=== PATIENT | female | born 1935 | race Caucasian/White ===

== ENCOUNTER 2018-05-25 19:12 | Emergency (ER) | payer OTHER ==
[2018-05-25] MEDS ORDERED: ENALAPRILAT 1.25 MG/ML VIAL IV ONE (20:17)
[2018-05-25 20:21] LABS: Absolute Lymphocytes (CBC) 2.2 K/uL (0.7-4.9); Absolute Monocytes 0.6 K/uL (0.1-1.3); Absolute Neutrophil 4.6 K/uL (1.8-8.0); Basophils % 0.9 % (0-1.3); Eosinophils % 2.6 % (0-4.4); Hematocrit 37.1 % (36.0-45.0); Lymphocytes % 28.7 % (15.3-44.8); MCH 28.9 pg (27.0-35.0); MCV 84.9 fL (80-100); MPV 7.7 fL (7.6-11.3); Monocytes % 8.2 % (3.3-12.3); RBC Red Blood Cell Count 4.36 M/uL (3.86-4.86)
[2018-05-25 20:25] LABS: Protime INR 0.93
[2018-05-25 20:40] LABS: ALT/SGPT 24 U/L (12-78); AST/SGOT 24 U/L (15-37); Albumin 3.6 g/dL (3.4-5.0); Alkaline Phosphatase 94 U/L (45-117); BUN Blood Urea Nitrogen 15 mg/dL (7-18); Bicarbonate 27 mmol/L (21-32); Bilirubin Direct < 0.1 mg/dL (0-0.2); Bilirubin Total 0.2 mg/dL (0.2-1.0); Glucose Level 173 mg/dL (74-106); NT PRO-BNP 482 pg/mL (<450); Protein, Total 7.4 g/dL (6.4-8.2); Sodium Level 141 mmol/L (136-145); Troponin (Emerg Dept Use Only) < 0.02 ng/mL (0.0-0.045)
--- NOTE | 2018-05-25 21:00 | ER ---
Nurse's Notes [facility] Name: Suzanna Loving Age: 83 yrs Sex: Female : 1935 Arrival Date: 05/25/2018 Time: 19:15 Bed 20 Private MD: Sasha Savage C Diagnosis: Essential (primary) hypertension Presentation: 05/25 19:18 Presenting complaint: Patient states: My BP has been running really high at home and I la1 feel like me equilibrium is off since I fell one month ago. Transition of care: patient was not received from another setting of care. Onset of symptoms was May 25, 2018. Risk Assessment: Do you want to hurt yourself or someone else? Patient reports no desire to harm self or others. Initial Sepsis Screen: Does the patient meet any 2 criteria? No. Patient's initial sepsis screen is negative. Does the patient have a suspected source of infection? No. Patient's initial sepsis screen is negative. Care prior to arrival: None. 19:18 Method Of Arrival: Ambulatory la1 19:18 Acuity: ARTHUR 3 la1 Historical: - Allergies: 19:19 Pyridium; la1 - PMHx: 19:19 BRADYCARDIA; COPD; Hypertension; la1 - Immunization history:: Adult Immunizations up to date. - Social history:: Smoking status: Patient/guardian denies using tobacco. - Ebola Screening: : No symptoms or risks identified at this time. Screenin:30 Abuse screen: Denies threats or abuse. Nutritional screening: No deficits noted. jb4 Tuberculosis screening: No symptoms or risk factors identified. Fall Risk Fall in past 12 months (25 points). Total Arevalo Fall Scale indicates Low Risk Score (25-44 pts). Fall prevention measures have been instituted. Side Rails Up X 2 Placed close to Nursing Station Frequent Obs/Assesments occuring Family Present and informed to notify staff if they need to leave bedside. Assessment: 19:30 General: Appears in no apparent distress. comfortable, Behavior is calm, cooperative, jb4 appropriate for age. Pain: Complains of pain in left ear, headache. Pain does not radiate. Pain currently is 2 out of 10 on a pain scale. Pain began 1 day ago. Neuro: Level of Consciousness is awake, alert, obeys commands, Oriented to person, place, time, situation. Cardiovascular: Heart tones S1 S2 present Patient's skin is warm and dry. Rhythm is sinus rhythm. Respiratory: Airway is patent Respiratory effort is even, unlabored, Respiratory pattern is regular, symmetrical. GI: No signs and/or symptoms were reported involving the gastrointestinal system. : No signs and/or symptoms were reported regarding the genitourinary system. EENT: No signs and/or symptoms were reported regarding the EENT system. Derm: Skin is intact, Skin is pink, warm \T\ dry. Musculoskeletal: Circulation, motion, and sensation intact. 20:31 Reassessment: Patient appears in no apparent distress at this time. Patient and/or jb4 family updated on plan of care and expected duration. Pain level reassessed. Patient is alert, oriented x 3, equal unlabored respirations, skin warm/dry/pink. Patient states feeling better. Patient states symptoms have improved. 21:13 Reassessment: Patient appears in no apparent distress at this time. Patient and/or jb4 family updated on plan of care and expected duration. Pain level reassessed. Patient is alert, oriented x 3, equal unlabored respirations, skin warm/dry/pink. Discussed D/c, F/u with pt, denies questions or concerns. Patient states feeling better. Vital Signs: 19:19 BP 169 / 107; Pulse 80; Resp 16; Temp 97.6; Pulse Ox 97% on R/A; Weight 90.72 kg; la1 20:30 BP 153 / 85; Pulse 72; Resp 16; Pulse Ox 100% on R/A; jb4 20:45 BP 159 / 82; Pulse 72; Resp 12; Pulse Ox 100% on R/A; jb4 ED Course: 19:15 Patient arrived in ED. es 19:15 Sasha Savage MD is Private Physician. es 19:19 Triage completed. la1 19:19 Arm band placed on left wrist. la1 19:20 Reynold Joshi, HOLLIE is Primary Nurse. jb4 19:30 Patient has correct armband on for positive identification. Bed in low position. Call jb4 light in reach. Side rails up X 1. monitoring analyst on. Pulse ox on. NIBP on. 19:30 Inserted saline lock: 22 gauge in right forearm, using aseptic technique. Blood jb4 collected. 19:38 Jaime Graves PA is PHCP. jr8 19:38 Mohan Young MD is Attending Physician. jr8 19:45 Initial lab(s) drawn, by me, sent to lab. jb4 20:31 XRAY Chest (1 view) In Process Unspecified. EDMS 20:59 Sasha Savage MD is Referral Physician. jr8 21:13 No provider procedures requiring assistance completed. IV discontinued, intact, jb4 bleeding controlled. Administered Medications: 20:20 Drug: Enalaprilat 1.25 mg Route: IV; Rate: calculated rate; Site: right forearm; jb4 20:32 Follow up: Response: No adverse reaction; Blood pressure is lowered; IV Status: jb4 Completed infusion; given IVP per Pharmacy protocol. Intake: Outcome: 20:59 Discharge ordered by . jr8 21:14 Discharged to home ambulatory, with family. jb4 21:14 Condition: stable 21:14 Discharge instructions given to patient, family, Instructed on discharge instructions, follow up and referral plans. medication usage, Demonstrated understanding of instructions, follow-up care, medications, Prescriptions given X 2. 21:14 Patient left the ED. jb4 Signatures: Dispatcher [employer] EDWA Anitha Toledo Josh, PA PA jr8 Joel Menjivar, RN RN la1 Reynold Joshi, RN RN jb4 Corrections: (The following items were deleted from the chart) 21:14 19:30 Inserted saline lock: 22 gauge in right forearm, using aseptic technique. Blood jb4 collected. jb4
--- NOTE | 2018-05-25 21:01 | EDPHYS ---
Physician Documentation [facility] Name: Suzanna Loving Age: 83 yrs Sex: Female : 1935 Arrival Date: 05/25/2018 Time: 19:15 Bed 20 Private MD: Sasha Savage C ED Physician Mohan Young HPI: 05/25 21:43 This 83 yrs old Female presents to ER via Ambulatory with complaints of High jr8 Blood Pressure. 21:43 Onset: The symptoms/episode began/occurred gradually, 3 day(s) ago. Associated signs jr8 and symptoms: The patient has no apparent associated signs or symptoms. It is unknown whether or not the patient has had similar symptoms in the past. The patient has not recently seen a physician. Patient stated that she has been checking her BP for the past few days because it has been elevated. Concerned that it is not going down with her BP medicine . Historical: - Allergies: 19:19 Pyridium; la1 - PMHx: 19:19 BRADYCARDIA; COPD; Hypertension; la1 - Immunization history:: Adult Immunizations up to date. - Social history:: Smoking status: Patient/guardian denies using tobacco. - Ebola Screening: : No symptoms or risks identified at this time. ROS: 21:43 Eyes: Negative for injury, pain, redness, and discharge, ENT: Negative for injury, jr8 pain, and discharge, Neck: Negative for injury, pain, and swelling, Cardiovascular: Negative for chest pain, palpitations, and edema, Respiratory: Negative for shortness of breath, cough, wheezing, and pleuritic chest pain, Abdomen/GI: Negative for abdominal pain, nausea, vomiting, diarrhea, and constipation, Back: Negative for injury and pain, MS/Extremity: Negative for injury and deformity, Skin: Negative for injury, rash, and discoloration, Neuro: Negative for headache, weakness, numbness, tingling, and seizure. Exam: 21:43 Eyes: Pupils equal round and reactive to light, extra-ocular motions intact. Lids and jr8 lashes normal. Conjunctiva and sclera are non-icteric and not injected. Cornea within normal limits. Periorbital areas with no swelling, redness, or edema. ENT: Nares patent. No nasal discharge, no septal abnormalities noted. Tympanic membranes are normal and external auditory canals are clear. Oropharynx with no redness, swelling, or masses, exudates, or evidence of obstruction, uvula midline. Mucous membranes moist. Neck: Trachea midline, no thyromegaly or masses palpated, and no cervical lymphadenopathy. Supple, full range of motion without nuchal rigidity, or vertebral point tenderness. No Meningismus. Cardiovascular: Regular rate and rhythm with a normal S1 and S2. No gallops, murmurs, or rubs. Normal PMI, no JVD. No pulse deficits. Respiratory: Lungs have equal breath sounds bilaterally, clear to auscultation and percussion. No rales, rhonchi or wheezes noted. No increased work of breathing, no retractions or nasal flaring. Abdomen/GI: Soft, non-tender, with normal bowel sounds. No distension or tympany. No guarding or rebound. No evidence of tenderness throughout. Back: No spinal tenderness. No costovertebral tenderness. Full range of motion. Skin: Warm, dry with normal turgor. Normal color with no rashes, no lesions, and no evidence of cellulitis. MS/ Extremity: Pulses equal, no cyanosis. Neurovascular intact. Full, normal range of motion. Neuro: Awake and alert, GCS 15, oriented to person, place, time, and situation. Cranial nerves II-XII grossly intact. Motor strength 5/5 in all extremities. Sensory grossly intact. Cerebellar exam normal. Normal gait. Vital Signs: 19:19 BP 169 / 107; Pulse 80; Resp 16; Temp 97.6; Pulse Ox 97% on R/A; Weight 90.72 kg; la1 20:30 BP 153 / 85; Pulse 72; Resp 16; Pulse Ox 100% on R/A; jb4 20:45 BP 159 / 82; Pulse 72; Resp 12; Pulse Ox 100% on R/A; jb4 MDM: 19:38 Patient medically screened. jr8 20:58 Data reviewed: vital signs, nurses notes, lab test result(s), EKG, radiologic studies, jr8 plain films, and as a result, I will discharge patient. Data interpreted: Pulse oximetry: on room air is 100 %. Interpretation: normal. Counseling: I had a detailed discussion with the patient and/or guardian regarding: the historical points, exam findings, and any diagnostic results supporting the discharge/admit diagnosis, lab results, radiology results, the need for outpatient follow up, a family practitioner, to return to the emergency department if symptoms worsen or persist or if there are any questions or concerns that arise at home. ED course: Blood pressure improved. Patient without chest pain or shortness of breath. Detailed discussion with family and patient about blood pressure monitoring. Will call PCP tomorrow for appointment. 05/25 20:05 Order name: Basic Metabolic Panel; Complete Time: 20:46 [facility] 05/25 20:05 Order name: CBC with Diff; Complete Time: 20:46 [facility] 05/25 20:05 Order name: LFT's; Complete Time: 20:46 [facility] 05/25 20:05 Order name: Magnesium; Complete Time: 20:46 [facility] 05/25 20:05 Order name: NT PRO-BNP; Complete Time: 20:46 [facility] 05/25 20:05 Order name: PT-INR; Complete Time: 20:46 [facility] 05/25 20:05 Order name: Troponin (emerg Dept Use Only); Complete Time: 20:46 [facility] 05/25 20:05 Order name: XRAY Chest (1 view) 05/25 20:05 Order name: EKG; Complete Time: 20: [facility] 05/25 20:05 Order name: Cardiac monitoring; Complete Time: 20: [facility] 05/25 20:05 Order name: EKG - Nurse/Tech; Complete Time: 20: 05/25 20:05 Order name: IV Saline Lock; Complete Time: 20: 05/25 20:05 Order name: Labs collected and sent; Complete Time: 20: [facility] 05/25 20:05 Order name: O2 Per Protocol; Complete Time: 20: 05/25 20:05 Order name: O2 Sat Monitoring; Complete Time: 20: Administered Medications: 20:20 Drug: Enalaprilat 1.25 mg Route: IV; Rate: calculated rate; Site: right forearm; jb4 20:32 Follow up: Response: No adverse reaction; Blood pressure is lowered; IV Status: jb4 Completed infusion; given IVP per Pharmacy protocol. Disposition: 05/26 06:55 Co-signature as Attending Physician, Mohan SEVERINO I agree with the assessment and mary plan of care. Disposition: 05/25/18 20:59 Discharged to Home. Impression: Essential (primary) hypertension. - Condition is Stable. - Discharge Instructions: Hypertension. - Prescriptions for amlodipine 5 mg Oral tablet - take 1 tablet by ORAL route once daily; 20 tablet. Meclizine 25 mg Oral Tablet - take 1 tablet by ORAL route every 8 hours As needed; 30 tablet. - Medication Reconciliation Form, Thank You Letter, Antibiotic Education, Prescription Opioid Use form. - Follow up: Sasha Savage MD; When: Tomorrow; Reason: Recheck today's complaints, Continuance of care, Re-evaluation by your physician. - Problem is new. - Symptoms have improved. Signatures: Dispatcher [employer] EDMS Mohan Young MD MD cha Roszak, Josh, PA PA jr8 Joel Menjivar RN RN la1 Reynold Joshi RN RN jb4 Corrections: (The following items were deleted from the chart) 05/25 21:14 20:59 05/25/2018 20:59 Discharged to Home. Impression: Essential (primary) jb4 hypertension. Condition is Stable. Forms are Medication Reconciliation Form, Thank You Letter, Antibiotic Education, Prescription Opioid Use. Follow up: Sasha Savage; When: Tomorrow; Reason: Recheck today's complaints, Continuance of care, Re-evaluation by your physician. Problem is new. Symptoms have improved. jr8
--- NOTE | 2018-05-25 21:35 | RAD REPORT ---
EXAM DESCRIPTION: RAD - Chest Single View - 05/25/2018 8:31 pm CLINICAL HISTORY: Dyspnea, hypertension COMPARISON: May 2017 TECHNIQUE: AP portable chest image was obtained 2025 hours . FINDINGS: Lungs are clear. Heart and vasculature are normal. No measurable pleural effusion and no p neumothorax. No acute bony abnormality seen. No acute aortic findings suspected. IMPRESSION: No acute cardiopulmonary process. No suspicious change from comparison.
--- NOTE | 2018-05-26 06:52 | EKG ---
Test Date: 2018-05-25 Test Time: 20:31:53 [employer] Analysis: ANN MARIE MEASUREMENT RESULTS: Intervals: Rate: 82 MO: 136 QRSD: 86 QT: 378 QTc: 441 Barbeau: P: 76 MO: 136 QRS: -22 T: 64 INTERPRETIVE STATEMENTS: Normal sinus rhythm Normal ECG Compared to ECG 06/03/2017 23:06:30 Atrial premature complex(es) no longer present ST (T wave) deviation no longer present Electronically Signed On 05-26-18 06:51:43 ANIMAL TRAINER by Sonido Vasquez
== END 2018-05-25 21:14 | disposition home or self-care (01) ==
LOC: ER 19:12
DX: I10 Essential (primary) hypertension (principal); Z88.8 Allergy status to other drugs, medicaments and biological substances
CPT/HCPCS: 36415; 71045; 80048; 80076; 83735; 83880; 84484; 85025; 85610; 93005; 96374; 99284

== ENCOUNTER 2018-05-28 23:09 | Observation (INO) | payer OTHER ==
[2018-05-29 00:37] LABS: Absolute Lymphocytes (CBC) 2.1 K/uL (0.7-4.9); Absolute Monocytes 0.8 K/uL (0.1-1.3); Absolute Neutrophil 4.8 K/uL (1.8-8.0); Basophils % 0.8 % (0-1.3); Eosinophils % 2.3 % (0-4.4); Hematocrit 37.8 % (36.0-45.0); Lymphocytes % 26.3 % (15.3-44.8); MCH 28.3 pg (27.0-35.0); MCV 84.7 fL (80-100); MPV 7.6 fL (7.6-11.3); Monocytes % 9.9 % (3.3-12.3); RBC Red Blood Cell Count 4.47 M/uL (3.86-4.86)
[2018-05-29 00:50] LABS: BUN Blood Urea Nitrogen 20 mg/dL (7-18); Bicarbonate 26 mmol/L (21-32); CKMB Creatine Kinase MB 2.9 ng/mL (0.3-3.6); Creatine Phosphokinase 80 U/L (26-192); Glucose Level 113 mg/dL (74-106); NT PRO-BNP 474 pg/mL (<450); Potassium 3.9 mmol/L (3.5-5.1); Sodium Level 140 mmol/L (136-145); Troponin I < 0.02 ng/mL (0.0-0.045)
[2018-05-29 01:48] LABS: Urine Bacteria <20 /HPF (<20); Urine Culture Reflex Order NOT NEEDED; Urine RBC <5 /HPF (NONE SEEN)
[2018-05-29 01:49] LABS: Urine Blood TRACE (NEG); Urine Glucose NEGATIVE (NEG); Urine Protein NEGATIVE (NEG)
--- NOTE | 2018-05-29 02:05 | EDPHYS ---
Physician Documentation [facility] Name: Suzanna Loving Age: 83 yrs Sex: Female : 1935 Arrival Date: 05/28/2018 Time: 23:10 Bed 18 Private MD: Sasha Savage C ED Physician Naveen Griggs HPI: 05/28 23:55 This 83 yrs old Female presents to ER via Wheelchair with complaints of High snw Blood Pressure, Dizziness, Headache. 23:55 The patient has elevated blood pressure and discovered this at home. Onset: The snw symptoms/episode began/occurred 2 month(s) ago, and became persistent. Modifying factors:. Severity of symptoms: At its worst the blood pressure was 204 mm Hg. The patient has experienced similar episodes in the past, several times. The patient has been recently seen by a physician: Dr. Savage The patient has been recently seen at the [facility] Emergency Department, last week, for similar complaints Pt was taking Lisinopril 10mg q hs, added Norvasc 5mg po daily. Pt has taken Norvasc 3 times today as SBP was over 160. In ED BP 140/81. Historical: - Allergies: 23:53 Pyridium; ea - Home Meds: 23:53 lisinopril 5 mg Oral tab 1 tab once daily [Active]; amlodipine 5 mg tab 1 tab once ea daily [Active]; - PMHx: 23:53 BRADYCARDIA; Hypertension; COPD; ea - PSHx: 23:53 None; ea - Immunization history:: Adult Immunizations up to date. - Social history:: Smoking status: Patient/guardian denies using tobacco. - Ebola Screening: : No symptoms or risks identified at this time. ROS: 23:53 Constitutional: Negative for fever, chills, and weight loss, Eyes: Negative for injury, snw pain, redness, and discharge, ENT: Negative for injury, pain, and discharge, Neck: Negative for injury, pain, and swelling, Cardiovascular: Negative for chest pain, palpitations, and edema, Respiratory: Negative for shortness of breath, cough, wheezing, and pleuritic chest pain, Abdomen/GI: Negative for abdominal pain, nausea, vomiting, diarrhea, and constipation, Back: Negative for injury and pain, : Negative for injury, bleeding, discharge, and swelling, MS/Extremity: Negative for injury and deformity, Skin: Negative for injury, rash, and discoloration. 23:53 Neuro: Positive for high blood pressure. Exam: 23:53 Constitutional: This is a well developed, well nourished patient who is awake, alert, snw and in no acute distress. Head/Face: Normocephalic, atraumatic. Eyes: Pupils equal round and reactive to light, extra-ocular motions intact. Lids and lashes normal. Conjunctiva and sclera are non-icteric and not injected. Cornea within normal limits. Periorbital areas with no swelling, redness, or edema. ENT: Nares patent. No nasal discharge, no septal abnormalities noted. Tympanic membranes are normal and external auditory canals are clear. Oropharynx with no redness, swelling, or masses, exudates, or evidence of obstruction, uvula midline. Mucous membranes moist. Neck: Trachea midline, no thyromegaly or masses palpated, and no cervical lymphadenopathy. Supple, full range of motion without nuchal rigidity, or vertebral point tenderness. No Meningismus. Chest/axilla: Normal chest wall appearance and motion. Nontender with no deformity. No lesions are appreciated. Cardiovascular: Regular rate and rhythm with a normal S1 and S2. No gallops, murmurs, or rubs. Normal PMI, no JVD. No pulse deficits. Respiratory: Lungs have equal breath sounds bilaterally, clear to auscultation and percussion. No rales, rhonchi or wheezes noted. No increased work of breathing, no retractions or nasal flaring. Abdomen/GI: Soft, non-tender, with normal bowel sounds. No distension or tympany. No guarding or rebound. No evidence of tenderness throughout. Back: No spinal tenderness. No costovertebral tenderness. Full range of motion. Skin: Warm, dry with normal turgor. Normal color with no rashes, no lesions, and no evidence of cellulitis. MS/ Extremity: Pulses equal, no cyanosis. Neurovascular intact. Full, normal range of motion. Neuro: Awake and alert, GCS 15, oriented to person, place, time, and situation. Cranial nerves II-XII grossly intact. Motor strength 5/5 in all extremities. Sensory grossly intact. Cerebellar exam normal. Normal gait. Psych: Awake, alert, with orientation to person, place and time. Behavior, mood, and affect are within normal limits. Vital Signs: 23:20 BP 140 / 81; Pulse 83; Resp 17; Temp 97.6; Pulse Ox 99% ; ea 23:57 BP 139 / 78 LA; ea 23:57 BP 181 / 73 RA; ea 05/29 00:00 BP 176 / 80 RA; Pulse 75; Resp 18; Pulse Ox 98% ; ea 01:00 BP 132 / 90; Pulse 79; Resp 18; Pulse Ox 99% ; ea 02:57 BP 151 / 88; Pulse 80; Resp 18; Pulse Ox 99% on R/A; ea MDM: 05/28 23:19 Patient medically screened. snw 05/29 02:00 Physician consultation: Naveen Griggs MD and will see patient in ED, recommends snw admission to PCP. 02:06 Data reviewed: vital signs, nurses notes. Data interpreted: Pulse oximetry: on room air snw is 99 %. Interpretation: normal. Counseling: I had a detailed discussion with the patient and/or guardian regarding: the historical points, exam findings, and any diagnostic results supporting the discharge/admit diagnosis, the presence of at least one elevated blood pressure reading (>120/80) during this emergency department visit, lab results, radiology results, the need for outpatient follow up, Son refuses to have pt discharged. States she lives alone and insists pt be admitted 2nd to unsteadiness on ambulation, blood pressure fluctuations, headache, recent fall. Pt family insists pt see Neurology, Cardiology, and PCP prior to taking family member home. Pt was seen per Dr. Savage in office last week. Amlodipine was added to Lisinopril q hs for HTN treatment. Pt has taken amlodipine three times today instead of her scheduled one and her Lisinopril.. 05/28 23:19 Order name: Urine Microscopic Only; Complete Time: 01:49 snw 05/28 23:37 Order name: CBC with Diff; Complete Time: 00:53 snw 05/28 23:37 Order name: Chem 7; Complete Time: 00:53 snw 05/28 23:37 Order name: BNP; Complete Time: 00:53 snw 05/28 23:37 Order name: Troponin I; Complete Time: 00:53 snw 05/28 23:37 Order name: CPK; Complete Time: 00:53 snw 11/07 23:19 Order name: Urine Dipstick-Ancillary (obtain specimen); Complete Time: 01:02 snw 05/28 23:36 Order name: CT Head Brain wo Cont snw 05/28 23:36 Order name: Bilateral blood pressure; Complete Time: 01:02 snw 05/28 23:37 Order name: EKG; Complete Time: 23:38 snw 05/28 23:37 Order name: EKG - Nurse/Tech; Complete Time: 01:02 snw 05/28 23:37 Order name: Ckmb; Complete Time: 00:53 snw 05/29 00:37 Order name: Urine Dipstick--Ancillary (enter results); Complete Time: 01:59 mt Administered Medications: No medications were administered Disposition: 17:06 Co-signature as Attending Physician, Naveen Griggs MD I agree with the assessment and al plan of care. Disposition: 05/29/18 02:05 Hospitalization ordered by Sasha Savage for Observation. Preliminary diagnosis are Dizziness and giddiness, Headache, Essential (primary) hypertension. - Bed requested for Telemetry/MedSurg (observation). - Status is Observation. rachel - Condition is Stable. - Problem is an acute exacerbation. - Symptoms have worsened. UTI on Admission? No Signatures: Dispatcher [employer] [facility] Heather Licea RN RN mw Therrien, Shelly, DOCTOR CHIROPRACTIC-C DOCTOR CHIROPRACTIC-Csnw Chely Frey RN RN ea Appiah, William, MD MD al Corrections: (The following items were deleted from the chart) 02:10 02:05 Hospitalization Ordered by A Hussein SEVERINO for Observation. Preliminary diagnosis is snw Dizziness and giddiness; Headache; Essential (primary) hypertension. Bed requested for Telemetry/MedSurg (observation). Status is Observation. Condition is Stable. Problem is an acute exacerbation. Symptoms have worsened. UTI on Admission? Yes. snw 02:19 02:17 Physician consultation: Naveen Griggs MD and will see patient in ED, recommends snw admission to PCP, [place] 02:27 02:10 05/29/2018 02:05 Hospitalization Ordered by Sasha Savage MD for Observation. linda Preliminary diagnosis is Dizziness and giddiness; Headache; Essential (primary) hypertension. Bed requested for Telemetry/MedSurg (observation). Status is Observation. Condition is Stable. Problem is an acute exacerbation. Symptoms have worsened. UTI on Admission? No. snw 03:25 02:27 05/29/2018 02:05 Hospitalization Ordered by A Hussein SEVERINO for Observation. ea Preliminary diagnosis is Dizziness and giddiness; Headache; Essential (primary) hypertension. Bed requested for Telemetry/MedSurg (observation). Status is Observation. Condition is Stable. Problem is an acute exacerbation. Symptoms have worsened. UTI on Admission? No. mw
--- NOTE | 2018-05-29 02:05 | ER ---
Nurse's Notes [facility] Name: Suzanna Loving Age: 83 yrs Sex: Female : 1935 Arrival Date: 05/28/2018 Time: 23:10 Bed 18 Private MD: Sasha Savage C Diagnosis: Dizziness and giddiness;Headache;Essential (primary) hypertension Presentation: 05/28 23:20 Presenting complaint: Patient states: Her blood pressure has been elevated all day, ea reports she took a PRN amlodpine this evening. Pt reports dizziness and headache after taking medication. Transition of care: patient was not received from another setting of care. Onset of symptoms was May 28, 2018. Risk Assessment: Do you want to hurt yourself or someone else? Patient reports no desire to harm self or others. Initial Sepsis Screen: Does the patient meet any 2 criteria? No. Patient's initial sepsis screen is negative. Does the patient have a suspected source of infection? No. Patient's initial sepsis screen is negative. Care prior to arrival: Medication(s) given: Amlodipine 5mg. 23:20 Method Of Arrival: Wheelchair ea 23:20 Acuity: ARTHUR 3 ea Triage Assessment: 23:21 Headache History: The patient has had previous headaches and this one is similar to ea previous episodes. General: Appears in no apparent distress. Behavior is calm, cooperative, appropriate for age. Pain: Denies pain. Neuro: Level of Consciousness is awake, alert, obeys commands, Oriented to person, place, time, situation. Cardiovascular: Heart tones S1 S2 present Patient's skin is warm and dry. Respiratory: Airway is patent Respiratory effort is even, unlabored, Respiratory pattern is regular, symmetrical, Breath sounds are clear bilaterally. GI: Abdomen is non-distended, Bowel sounds present X 4 quads. Derm: Skin is pink, warm \T\ dry. Historical: - Allergies: 23:53 Pyridium; ea - Home Meds: 23:53 lisinopril 5 mg Oral tab 1 tab once daily [Active]; amlodipine 5 mg tab 1 tab once ea daily [Active]; - PMHx: 23:53 BRADYCARDIA; Hypertension; COPD; ea - PSHx: 23:53 None; ea - Immunization history:: Adult Immunizations up to date. - Social history:: Smoking status: Patient/guardian denies using tobacco. - Ebola Screening: : No symptoms or risks identified at this time. Screenin:56 Abuse screen: Denies threats or abuse. Nutritional screening: No deficits noted. ea Tuberculosis screening: No symptoms or risk factors identified. Fall Risk None identified. Assessment: 05/29 00:00 Reassessment: Patient and/or family updated on plan of care and expected duration. Pain ea level reassessed. Patient is alert, oriented x 3, equal unlabored respirations, skin warm/dry/pink. 01:02 Reassessment: Patient and/or family updated on plan of care and expected duration. Pain ea level reassessed. Patient is alert, oriented x 3, equal unlabored respirations, skin warm/dry/pink. 02:58 Reassessment: Patient and/or family updated on plan of care and expected duration. Pain ea level reassessed. Patient is alert, oriented x 3, equal unlabored respirations, skin warm/dry/pink. Report called to receiving nurse on fourth floor. 03:15 Reassessment: Patient and/or family updated on plan of care and expected duration. Pain ea level reassessed. Patient is alert, oriented x 3, equal unlabored respirations, skin warm/dry/pink. Vital Signs: 05/28 23:20 BP 140 / 81; Pulse 83; Resp 17; Temp 97.6; Pulse Ox 99% ; ea 23:57 BP 139 / 78 LA; ea 23:57 BP 181 / 73 RA; ea 05/29 00:00 BP 176 / 80 RA; Pulse 75; Resp 18; Pulse Ox 98% ; ea 01:00 BP 132 / 90; Pulse 79; Resp 18; Pulse Ox 99% ; ea 02:57 BP 151 / 88; Pulse 80; Resp 18; Pulse Ox 99% on R/A; ea ED Course: 05/28 23:10 Patient arrived in ED. al2 23:11 Sasha Savage MD is Private Physician. al2 23:18 Neema Lee FNP-C is [facility]. snw 23:19 Naveen Griggs MD is Attending Physician. snw 23:20 Arm band placed on right wrist. Patient placed in an exam room, on a stretcher, on ea pulse oximetry. 23:20 Patient has correct armband on for positive identification. Bed in low position. Call ea light in reach. Side rails up X2. 23:48 Chely Frey, RN is Primary Nurse. ea 23:50 Inserted saline lock: 20 gauge in right antecubital area, using aseptic technique. ea Blood collected. 23:52 Triage completed. ea 1108 00:45 CT completed. Patient tolerated procedure well. Patient moved to CT via stretcher. Patient moved back from CT. 00:55 CT Head Brain wo Cont In Process Unspecified. EDMS 02:04 Sasha Savage MD is Hospitalizing Provider. snw 02:43 No provider procedures requiring assistance completed. Patient admitted, IV remains in ea place. Administered Medications: No medications were administered Outcome: 02:05 Decision to Hospitalize by Provider. snw 02:55 Admitted to Med/surg accompanied by nurse, room 431, Report called to Receiving nurse ea on fourth floor. 02:55 Condition: stable 02:55 Instructed on the need for admit, Demonstrated understanding of instructions. 03:25 Patient left the ED. ea Signatures: Dispatcher [employer] EDNY Neema Lee, TIE MAKER-C TIE MAKER-Csnw Ryan Sinclair Chely Frey, RN RN Aruna Lane
[2018-05-29] MEDS ORDERED: ACETAMINOPHEN 500 MG TAB PO PRN (03:33)
--- NOTE | 2018-05-29 07:03 | RAD REPORT ---
EXAM DESCRIPTION: CT - Head Brain Wo Cont - 05/29/2018 3:31 am CLINICAL HISTORY: Headache, dizziness, hypertension. A preliminary report was provided at the time of the study and reviewed prior to final report. COMPARISON: None. TECHNIQUE: Axial 5 mm thick images of the head were obtained without IV contrast. All CT scans are performed using dose optimization technique as appropriate and may include automated exposure control or mA/KV adjustment according to patient size. FINDINGS: No intracranial hemorrhage, mass, edema or shift of mid-line structures. No acute infarcti on changes seen. Minimal atrophy and chronic ischemic changes evident. Arterial and physiologic calci fications are seen. Ventricles are normal. Mastoid air cells and visualized portions of the paranasal sinuses are clear. No acute bony findings. Patient has normal variant hyperostosis frontalis interna. IMPRESSION: Negative non-contrast CT head examination for acute finding.
--- NOTE | 2018-05-29 07:09 | EKG ---
Test Date: 2018-05-29 Test Time: 00:09:32 Physics Teacher: ANN MARIE MEASUREMENT RESULTS: Intervals: Rate: 75 [place]: 138 QRSD: 84 QT: 400 QTc: 446 [place]: P: [place]: 138 QRS: -26 T: 148 INTERPRETIVE STATEMENTS: Normal sinus rhythm Nonspecific T wave abnormality Abnormal ECG Compared to ECG 05/25/2018 20:31:53 T-wave abnormality now present Electronically Signed On 05-29-18 07:08:57 TEST CONDUCTOR by Sonido Vasquez
[2018-05-29] MEDS ORDERED: INFLUENZA VACCINE (for 3y+) 0.5 ML DOSE IMVAC ONE (08:00)
[2018-05-29] MEDS ORDERED: PNEUMOCOCCAL VACCINE 0.5 ML IMVAC ONE (08:00)
[2018-05-29 08:47] LABS: Albumin 3.3 g/dL (3.4-5.0); Bilirubin Direct 0.1 mg/dL (0-0.2); Bilirubin Total 0.4 mg/dL (0.2-1.0); Folic Acid, (Folate) 18.5 ng/mL (3.1-17.5); Protein, Total 6.9 g/dL (6.4-8.2); Thyroid Stimulating Hormone 1.23 uIU/mL (0.360-3.740)
[2018-05-29] MEDS: AMLODIPINE 5 MG TAB PO SCH (09:44)
[2018-05-29] MEDS: ASPIRIN EC 81 MG TAB PO SCH (09:45)
--- NOTE | 2018-05-29 11:25 | RAD REPORT ---
EXAM DESCRIPTION: US - CP - 05/29/2018 9:29 am CLINICAL HISTORY: Dizziness, left subclavian steal, asymmetric upper extremity blood pressure measur ements COMPARISON: None. TECHNIQUE: Real-time sonographic evaluation of both carotid systems was performed. Carty scale and Do ppler interrogation were performed with waveform tracing bilaterally. FINDINGS: Normal high resistance waveforms are noted in both external carotid arteries. The common c arotid arteries and internal carotid arteries show normal low resistance waveforms. Prominent calcified and noncalcified plaquing changes are present in the carotid bulb and proximal IC A regions. Peak systolic velocity on the right reaches 104 cm/second in the mid internal carotid marcos ry. Peak systolic velocity in the proximal left ICA reaches 130 cm/second. ICA/ CCA ratios are 1.4 on the right and 1.5 on the left. Right antegrade vertebral artery flow is seen. There is left retrograde vertebral artery flow matchi ng the left subclavian steal clinical presentation. Left subclavian steal is typically due to occlusi on or flow restricting lesion of the left subclavian artery between aortic arch and left vertebral ar win origin. Velocity values and ratios were recorded and are retained in the patient's imaging records. IMPRESSION: Left subclavian steal pattern with reversal flow in the left vertebral artery. Calcified and noncalcified plaquing changes causing borderline to mild internal carotid stenoses of 5 0-60%. No evidence of a hemodynamically significant stenosis.
--- NOTE | 2018-05-29 17:15 | RAD REPORT ---
EXAM DESCRIPTION: MRI - Brain Wo Cont - 05/29/2018 4:54 pm CLINICAL HISTORY: Persistent headaches following fall, unsteady gait, syncope COMPARISON: CT head May 29 TECHNIQUE: Sagittal T1-weighted images were obtained along with axial PD, heavily T2-weighted and T2 -FLAIR images. Axial DWI and ADC mapping sequences were also obtained along with coronal heavily T2-w eighted images. FINDINGS: No intracranial hemorrhage, mass or acute infarction. There is no edema or shift of midlin e structures. No extra-axial fluid collections. Carty-matter/white matter junction is preserved. Signa l voids are seen as a normal finding in the major intracranial vessels. Mild atrophy and chronic isch emic changes are present. Ventricles are in proportion to any volume loss. No globe or orbital content abnormality. No sella or supra sella abnormality. Mastoid air cells and paranasal sinuses are clear. IMPRESSION: Mild atrophy and chronic ischemic changes are present. No acute intracranial finding.
[2018-05-30 04:56] LABS: Absolute Lymphocytes (CBC) 1.9 K/uL (0.7-4.9); Absolute Monocytes 0.7 K/uL (0.1-1.3); Absolute Neutrophil 8.4 K/uL (1.8-8.0); Basophils % 0.4 % (0-1.3); Eosinophils % 1.5 % (0-4.4); Lymphocytes % 16.8 % (15.3-44.8); MCH 28.8 pg (27.0-35.0); MCV 84.4 fL (80-100); MPV 7.7 fL (7.6-11.3); Monocytes % 6.1 % (3.3-12.3); RBC Red Blood Cell Count 4.38 M/uL (3.86-4.86)
--- NOTE | 2018-05-30 05:01 | HP ---
Date of Admission: 05/29/2018 Chief Complaint: Headache and dizziness. History Of Present Illness: An 83-year-old female patient who actually fell about 2 to 3 weeks ago; and since that time, she has been having some headache and dizziness. Prior to that, the patient say s she did have occasional dizziness, but it is lot worse since that time. When she fell down, she di d go to emergency room, and CAT scan of the brain was reported negative at that time for any acute in tracranial changes. After that particular visit to emergency room, she started seeing me as a new pa tient at the office. She has history of hypertension. Recently this week, we added amlodipine 5 mg daily to help with the blood pressure control. Yesterday evening, she came to emergency room with co mplaints of headache and dizziness after she was evaluated in the ER. CAT scan of the brain was done , which was negative for any acute changes. I was contacted middle of the night, requesting admissio n to the hospital as the patient's family did not feel comfortable taking her back home because of he r symptoms, and the patient lives alone. No fever, chills, nausea, or vomiting. Past Medical History: Significant for hypertension. Past Surgical History: Significant for hysterectomy and appendectomy. Allergies: NO KNOWN ALLERGIES. Review of Systems: METAL PAINTER: As mentioned above. Cardiovascular: As mentioned above. All other systems are reviewed and negative. Family History: Significant for coronary artery disease, myocardial infarction, Alzheimer disease, a nd lung cancer. Social History: Negative for smoking and alcohol use. Medications: Amlodipine 5 mg daily in the morning, lisinopril 10 mg daily at bedtime, and vitamin D3 5000 units daily. Physical Examination: Vital Signs: This morning, temperature 97.7, pulse 77, respiratory rate 16, blood pressure 129/72, a nd oxygen saturation 99%. Height 5 feet 8 inches, weight 212 pounds. General: Awake, alert, oriented, not in distress. HEENT: Head atraumatic, normocephalic. Conjunctivae nonerythematous. Sclerae white. Mouth, no thr ush or edema noted. Ears/Nose, no mass, lesion, discharge noted. Neck: Supple. No JVD, lymph nodes, bruit, thyromegaly noted. Lungs: Bilateral good equal air entry. Clear to auscultation. No rhonchi. No rales. Heart: Normal heart sounds, no murmur or gallop. Abdomen: Soft, bowel sounds normal. No guarding, rigidity, tenderness, mass, hepatosplenomegaly, dis tention, or bruit noted. Extremities: No leg edema. No calf tenderness. Skin: No rash, ulcer, cellulitis. Lymphatics: No lymph node enlargement in neck, supraclavicular, infraclavicular region. Neuro: No focal neurological deficit. Chest: Unremarkable. External Genitalia: Deferred. Rectal: Deferred. Laboratory Data: White count 8, hemoglobin 12.7, and platelets 274. Sodium yesterday 140, potassium 3.9, chloride 108, bicarb 26, BUN 20, creatinine 0.90, and glucose 113. Troponin less than 0.02. P roBNP 474. Urinalysis; trace leukocyte esterase. Otherwise, negative. CAT scan of the head negativ e for any acute intracranial changes. EKG; normal sinus rhythm. Normal EKG. Carotid Doppler done t viviane shows evidence of left-sided subclavian steal. Impression: 1.Headache. 2.Dizziness. 3.Subclavian steal syndrome. 4.Hypertension. Plan: The patient was admitted to the hospital for observation after she was evaluated in emergency room. We will consult Physical Therapy to help ambulate the patient. Consult neurologist for furthe r evaluation. The patient's blood pressure was noted to be high in the right arm around 170; left ar m was around 120 systolic. So, there is significant difference in her blood pressure in both arms by 50 points. Because of this, carotid Doppler was ordered today as I was concerned about possibility of subclavian steal syndrome, and it does prove that the patient unfortunately has subclavian steal s yndrome, and we will go ahead and consult tablet tester for further evaluation and management of this problem. Continue antihypertensive medications per order. Possible discharge to go home tomorrow de pending on her condition and workup results. Details and plan of treatment discussed with the alvin gamboa and her family. MCKINLEY/MODL Voice ID: [id number]
[2018-05-30] MEDS: AMLODIPINE 5 MG TAB PO SCH (08:07)
[2018-05-30] MEDS: ASPIRIN EC 81 MG TAB PO SCH (08:08)
--- NOTE | 2018-05-30 08:22 | CON ---
Consultation called by Dr. Savage, because of possible stroke or TIA. History Of Present Illness: Ms. Loving is an 83-year-old patient, who has had a history of very fr agile blood pressure with frequent high blood pressures followed by low blood pressures and she repor ts having symptoms of "dizziness with very elevated blood pressures." She had 1 such episode and cam e to [facility] on the 7th in the emergency room. She had a head CT scan that was negative for any acute ischemic or hemorrhagic change. The study showed a minimal amount of atrophy and chron ic ischemic change. Carotid artery ultrasound showed left subclavian steal pattern with reversal of flow in the left vertebral artery. She actually did have very different blood pressures on the left versus right upper extremities difference of around 50 mmHg consistent with the left vertebral steal and this was on her blood pressure evaluation. At this point, she reports that her symptoms have mos tly resolved as her blood pressure is down, but she still has the occasional sensation of things movi ng about her or she may be tumbling to one side or the other. Past Medical History: Bradycardia, hypertension, chronic obstructive pulmonary disease, and long-sta nding difference in blood pressure from left to right side. Past Surgical History: None. Allergies: PYRIDIUM. Home Medications: Lisinopril 5 mg daily, amlodipine 5 mg daily. Family History: Noncontributory. Social History: No alcohol, tobacco, or IV drug use. Review of Systems: As indicated, occasional vertigo or dizziness symptoms. No nausea or vomiting. No visual disturbanc es. No myalgias, arthralgias, rash, headache, weight change, psychiatric complaints, gastrointestina l or genitourinary issues. Physical Examination: Vital Signs: Blood pressure 160/70, pulse 66, respiratory rate 18, temperature 97.7, ox saturation 9 8% on room air. Weight 212 pounds. Height 5 feet 8 inches, BMI 32.2. General: Ms. Loving is resting comfortably in bed. HEENT: She is normocephalic, atraumatic. Sclerae anicteric. Oropharynx is moist and pink. Neck: Supple. Chest: Clear. Heart: Regular. EXTREMITIES: Show no edema, cyanosis, or clubbing. NEUROLOGIC: Alert, oriented to person, place, time, and situation. Follows all commands appropriate ly. No cranial nerve deficits. No focal motor deficits in the arms and legs. No sensory deficits i n upper lower extremities. Coordination intact in upper and lower extremities. Her gait is intact. Laboratory Studies: Complete blood count with differential is completely normal. Electrolyte panel shows slightly elevated chloride 108, glucose range of 211. Liver function studies are normal. Thyr oid function is normal. Serum folate is normal. Vitamin D level is slightly low at 32.7. Urinalysi s shows trace esterase, trace blood. Her electrocardiogram shows normal sinus rhythm, nonspecific T- wave abnormalities. Assessment: Ms. Loving is an 83-year-old patient with subclavian steal syndrome and may have very bounding blood pressures. 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 The patient has had this chronically. Plan: 1.She is currently on aspirin 81 mg daily and may consider adding Plavix 75 mg daily. 2.Continue with careful management of blood pressures and may have to permit some mild permissive hy pertension but control very elevated blood pressures such as 190s/70s, systolic 140s is systolic, 130 s/40 may be okay. 3.Plan as indicated, manage blood pressure within the range as suggested. 4.Okay to continue the aspirin 81 mg daily along with Plavix 75 mg daily and folate 1 mg daily. 5.The patient may be discharged home and follow up in Dr. Rios's clinic in 1 month. MARIANNE Voice ID: [id number] Report ID: [id number]
--- NOTE | 2018-05-30 13:16 | CON ---
Date of Consultation: 05/30/[address] Savage's service on 05/29/2018. I saw the patient on 05/30/2018. Reason For Consultation: Subclavian steal syndrome. History Of Present Illness: Ms. Loving is an 83-year-old woman who has a history of hypertension, intermittent bradycardia, and gastroesophageal reflux disease. Has been actually very healthy in [facility]. She takes Norvasc, aspirin, and lisinopril at home. She came in with severe hypertension, dif ference in blood pressure between both arms, had a carotid Doppler that showed a right subclavian jose carlos al syndrome with a 60% stenosis of the left carotid. She had an MRA of her brain, it was negative, n egative CT of her head, negative chest x-ray, negative [place] [address] and a BNP of 474. The patient is asymptomatic for now, but her main symptom usually when her blood pressure is up is due to the dizziness and headaches. Allergies: PYRIDIUM. Review of Systems: Negative. Social History: Negative. Family History: Negative. Physical Examination: General: Ms. Loving is a very pleasant lady. She was in no acute distress. Vital Signs: Stable. She was afebrile. Her maximum pressure in her right arm was 196 and it was ab out a 40 mmHg in left arm. HEENT: Negative. Neck: Supple without any bruit. I thought there was a bruit of the right carotid subclavian junctio n. Cardiac: Revealed S4 gallops. Regular rhythm and rate. Abdomen: Benign. Extremities: Revealed no clubbing, cyanosis, or edema. Diagnostic Data: As stated earlier. Impression And Plan: Left carotid stenosis, right subclavian steal, hypertension, history of gastroe sophageal reflux disease. I discussed the case in detail with Ms. Loving and her daughter. I doris a diagram depicting what she might have as far as her carotids and subclavians are concerned. I rec ommended that we do an angiogram of the aortic arch, both subclavian, and both carotids in the near f uture. This can be done as an outpatient. We may have to depending what we find, have her go throug h an echocardiogram and a Lexiscan as an outpatient. There is certainly no urgency on the diagnostic procedures. This was discussed with her and her family. They will call and make arrangements for t his to be done as an outpatient through my office. I have discussed the case with Dr. Savage. She can go home otherwise. YAN/JAY Voice ID: [id number] Report ID: [id number]
--- NOTE | 2018-05-30 18:48 | EKG ---
Test Date: 2018-05-30 Test Time: 08:22:59 Staff Air Tactical Officer: MAYRA MEASUREMENT RESULTS: Intervals: Rate: 69 [place]: 132 QRSD: 76 QT: 428 QTc: 458 [place]: P: 82 NH: 132 QRS: 53 T: 63 INTERPRETIVE STATEMENTS: Normal sinus rhythm Normal ECG Compared to ECG 05/29/2018 00:09:32 T-wave abnormality no longer present Electronically Signed On 05-30-18 18:44:59 WEBSPHERE ARCHITECT by Angel Johns
--- NOTE | 2018-05-31 05:13 | DS ---
Date of Discharge: 05/30/2018 Disposition: Discharged to go home. Discharge Medications And Instructions: 1.Continue all prior home medications. 2.Follow up at my office per scheduled appointment and follow up with Dr. Johns per his instructio bernabe. Physical Examination: HEENT: Unremarkable. Lungs: Clear to auscultation. Heart: Sounds normal. Abdomen: Soft. Bowel sounds normal. No guarding, rigidity, tenderness, distention. Extremities: No leg edema. Laboratory Data: Labs and test results done during this hospitalization: Initial white count 8, hem oglobin 12.7, platelets 274. Last white count today 11.2, hemoglobin 12.6, platelets 277. Her initi al sodium 140, potassium 3.9, chloride 108, bicarb 26, BUN 20, creatinine 0.9, glucose 113. Liver fu nction tests unremarkable. Her B12 level 398, vitamin D level 32.7, folic acid level 18.5. TSH leve l 1.23. Troponin, less than 0.02. Her MRI of the brain and CAT scan of the brain were negative for any acute intracranial changes. Carotid Doppler shows left subclavian still patent with reversal of flow in the left vertebral artery, calcified and noncalcified plaquing changes causing borderline to mild internal carotid stenosis of 50% to 60%. No evidence of hemodynamically significant stenosis. Hospital Course: An 83-year-old female patient, admitted to the hospital with headache and dizziness . Please see dictated H and P for more information. After the patient was evaluated in the emergenc y room, she was admitted to the hospital. ND was ruled out by getting serial cardiac enzymes. The p atient was noted to have difference in her blood pressure in both arms; right arm blood pressure is a bout 50 point higher than the left arm. With that, I was concerned about possibility of subclavian s teal syndrome and carotid Doppler was done which did prove her problem, and Cardiology consultation w as requested from Dr. Johns who evaluated the patient today. Neurology consultation was obtained f rom Dr. Rios, who ordered MRI of the brain that came back negative for any acute changes. Overal l, the patient's condition is stable and Dr. Johns will pursue further outpatient investigation for the subclavian steal syndrome. Final Diagnoses: 1.Headache. 2.Dizziness. 3.Subclavian steal syndrome. 4.Hypertension. MCKINLEY/MODL Voice ID: [id number] Report ID: [id number]
--- NOTE | 2018-06-01 20:09 | CON ---
Date of Consultation: 05/30/[address] Savage's service on 05/29/2018. I saw the patient on 05/30/2018. Reason For Consultation: Subclavian steal syndrome. History Of Present Illness: Ms. Loving is an 83-year-old woman. She has a history of hypertension , chronic bradycardia, gastroesophageal reflux disease. She has seen Dr. Orozco in the past. She came in with dizziness, hypertension, headaches, was found to have carotid Doppler abnormality with 60% s tenosis on the left carotid and what appears to be a right subclavian steal. She had a negative MRA of the brain, negative CT of the head, negative chest x-ray, negative EKG. She had a white count of 11,000. Her BNP was 474. The patient denied any syncope. Denied any chest pain. Past Medical History: As stated earlier. Allergies: SHE IS ALLERGIC TO PYRIDIUM. Medications At Home: Norvasc, aspirin, and lisinopril. Review of Systems: Negative. Social History: Negative. Family History: Positive for hypertension. Physical Examination: General: Ms. Loving was very alert and oriented x3. No acute distress. Vital Signs: Stable. Afebrile. HEENT: Negative. Neck: Supple. No bruit, lymphadenopathy, JVD, or thyromegaly. Chest: Clear to auscultation and percussion. I did not detect any bruits over the subclavian. Cardiac: Revealed a regular rhythm and rate. No murmurs, gallops, or rubs. Abdomen: Benign. Extremities: Revealed no clubbing, cyanosis, or edema. Diagnostic Data: As stated earlier. 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 I recommended an angiography of her c arotid and subclavian artery with possible intervention. She will also need an outpatient cardiac wo rkup with echocardiography and Lexiscan prior to that. This was discussed in detail with her and her family. She will be arranged as an outpatient through my office in the next week or so, but she can go home from my standpoint otherwise. Her blood pressure is fairly well controlled now. Her heart rate is not an issue. This is on the low side, but no symptoms. She has gastroesophageal reflux dis ease that is stable. NB/MODL Voice ID: [id number] Report ID: [id number]
== END 2018-05-30 10:45 | disposition home or self-care (01) ==
LOC: ER 23:09 → ERHOLD 05-29 02:12 → 4TH 05-29 02:49
PROVIDERS: ADMIT Internal Medicine; ATTEND Internal Medicine
DX: G45.8 Other transient cerebral ischemic attacks and related syndromes (principal); R51 Headache; R42 Dizziness and giddiness; I10 Essential (primary) hypertension; J44.9 Chronic obstructive pulmonary disease, unspecified
CPT/HCPCS: 36415 ×2; 70450; 70551; 80048 ×2; 80076; 82306; 82550; 82553; 82607; 82746; 83880; 84443; 84484 ×3; 85025 ×2; 93005 ×2; 93880; 99285; G0378 ×2; 81003; 81015

== ENCOUNTER 2018-06-17 23:35 | Emergency (ER) | payer OTHER ==
--- NOTE | 2018-06-18 00:50 | EDPHYS ---
Physician Documentation [facility] Name: Suzanna Loving Age: 83 yrs Sex: Female : 1935 Arrival Date: 06/17/2018 Time: 23:37 Bed 8 Private MD: Sasha Savage C ED Physician Srinivasan Snider HPI: 06/18 01:45 This 83 yrs old Female presents to ER via Ambulatory with complaints of High gs Blood Pressure. 01:45 The patient has elevated blood pressure and discovered this at home. Onset: The gs symptoms/episode began/occurred yesterday. Modifying factors:. Associated signs and symptoms: Pertinent negatives: chest pain, dyspnea, headache. Severity of symptoms: At its worst the blood pressure was severe, in the emergency department the blood pressure is improved, markedly. The patient has experienced similar episodes in the past, multiple times. Historical: - Allergies: 06/17 23:43 Pyridium; ak1 - Home Meds: 23:43 amlodipine 5 mg tab 1 tab in the morning and at bedtime [Active]; lisinopril 5 mg Oral ak1 tab 1 tab in the morning, 1 tab at bedtime. [Active]; - PMHx: 23:43 BRADYCARDIA; COPD; Hypertension; ak1 - PSHx: 23:43 None; ak1 - Immunization history:: Adult Immunizations unknown. - Social history:: Smoking status: Patient/guardian denies using tobacco. - Ebola Screening: : No symptoms or risks identified at this time. ROS: 06/18 01:45 All other systems are negative. gs Exam: 01:45 Head/Face: Normocephalic, atraumatic. Eyes: Pupils equal round and reactive to light, gs extra-ocular motions intact. Lids and lashes normal. Conjunctiva and sclera are non-icteric and not injected. Cornea within normal limits. Periorbital areas with no swelling, redness, or edema. ENT: Nares patent. No nasal discharge, no septal abnormalities noted. Tympanic membranes are normal and external auditory canals are clear. Oropharynx with no redness, swelling, or masses, exudates, or evidence of obstruction, uvula midline. Mucous membranes moist. Neck: Trachea midline, no thyromegaly or masses palpated, and no cervical lymphadenopathy. Supple, full range of motion without nuchal rigidity, or vertebral point tenderness. No Meningismus. Chest/axilla: Normal chest wall appearance and motion. Nontender with no deformity. No lesions are appreciated. Cardiovascular: Regular rate and rhythm with a normal S1 and S2. No gallops, murmurs, or rubs. Normal PMI, no JVD. No pulse deficits. Respiratory: Lungs have equal breath sounds bilaterally, clear to auscultation and percussion. No rales, rhonchi or wheezes noted. No increased work of breathing, no retractions or nasal flaring. Abdomen/GI: Soft, non-tender, with normal bowel sounds. No distension or tympany. No guarding or rebound. No evidence of tenderness throughout. Back: No spinal tenderness. No costovertebral tenderness. Full range of motion. Skin: Warm, dry with normal turgor. Normal color with no rashes, no lesions, and no evidence of cellulitis. MS/ Extremity: Pulses equal, no cyanosis. Neurovascular intact. Full, normal range of motion. Neuro: Awake and alert, GCS 15, oriented to person, place, time, and situation. Cranial nerves II-XII grossly intact. Motor strength 5/5 in all extremities. Sensory grossly intact. Cerebellar exam normal. Normal gait. 01:45 Constitutional: The patient appears alert, awake. Vital Signs: 06/17 23:43 BP 180 / 65; Pulse 73; Resp 16; Temp 98.2; Pulse Ox 100% on R/A; Weight 97.52 kg (R); ak1 Height 5 ft. 7 in. (170.18 cm) (R); Pain 3/10; 06/18 00:25 BP 155 / 63; Pulse 77; tl1 01:02 BP 136 / 69; Pulse 79; Resp 17; Temp 98.2; Pulse Ox 98% ; Pain 0/10; tl1 06/17 23:43 Body Mass Index 33.67 (97.52 kg, 170.18 cm) ak1 MDM: 00:21 Patient medically screened. 01:45 Differential diagnosis: hypertensive crisis, Malignant HTN. Data reviewed: vital signs, nurses notes. Counseling: I had a detailed discussion with the patient and/or guardian regarding: the historical points, exam findings, and any diagnostic results supporting the discharge/admit diagnosis, the need for outpatient follow up. Response to treatment: the patient's symptoms have markedly improved after treatment, and as a result, I will discharge patient. Administered Medications: No medications were administered Disposition: 06/18/18 00:49 Discharged to Home. Impression: Essential (primary) hypertension. - Condition is Stable. - Discharge Instructions: Hypertension. - Medication Reconciliation Form, Thank You Letter, Antibiotic Education, Prescription Opioid Use form. - Follow up: Emergency Department; When: 1 - 2 days; Reason: Re-evaluation by your physician. Signatures: Tatianna Barragan RN RN tl1 Yolanda Pinon RN RN ak1 Srinivasan Snider MD MD Corrections: (The following items were deleted from the chart) 01:02 00:49 06/18/2018 00:49 Discharged to Home. Impression: Essential (primary) tl1 hypertension. Condition is Stable. Forms are Medication Reconciliation Form, Thank You Letter, Antibiotic Education, Prescription Opioid Use. Follow up: Emergency Department; When: 1 - 2 days; Reason: Re-evaluation by your physician. gs
--- NOTE | 2018-06-18 00:50 | ER ---
Nurse's Notes [facility] Name: Suzanna Loving Age: 83 yrs Sex: Female : 1935 Arrival Date: 06/17/2018 Time: 23:37 Bed 8 Private MD: Sasha Savage C Diagnosis: Essential (primary) hypertension Presentation: 06/17 23:41 Presenting complaint: Patient states: headache and dizziness with elevated blood ak1 pressure. pt seen by PCP Dr. Savage with medication changes in the past 2 weeks. Transition of care: patient was not received from another setting of care. Onset of symptoms is unknown. Risk Assessment: Do you want to hurt yourself or someone else? Patient reports no desire to harm self or others. Initial Sepsis Screen: Does the patient meet any 2 criteria? No. Patient's initial sepsis screen is negative. Does the patient have a suspected source of infection? No. Patient's initial sepsis screen is negative. Care prior to arrival: None. 23:41 Method Of Arrival: Ambulatory ak1 23:41 Acuity: ARTHUR 3 ak1 Triage Assessment: 23:43 General: Appears in no apparent distress. Behavior is calm, cooperative. Pain: ak1 Complains of pain in headache. EENT: No signs and/or symptoms were reported regarding the EENT system. Neuro: Level of Consciousness is awake, alert, obeys commands, Oriented to person, place, time, situation, Hand Singer are equal bilaterally Moves all extremities. Gait is steady, Speech is normal, Facial symmetry appears normal, Pupils are PERRLA. Cardiovascular: No deficits noted. Respiratory: No deficits noted. GI: No signs and/or symptoms were reported involving the gastrointestinal system. : No signs and/or symptoms were reported regarding the genitourinary system. Derm: No signs and/or symptoms reported regarding the dermatologic system. Musculoskeletal: No signs and/or symptoms reported regarding the musculoskeletal system. Historical: - Allergies: 23:43 Pyridium; ak1 - Home Meds: 23:43 amlodipine 5 mg tab 1 tab in the morning and at bedtime [Active]; lisinopril 5 mg Oral ak1 tab 1 tab in the morning, 1 tab at bedtime. [Active]; - PMHx: 23:43 BRADYCARDIA; COPD; Hypertension; ak1 - PSHx: 23:43 None; ak1 - Immunization history:: Adult Immunizations unknown. - Social history:: Smoking status: Patient/guardian denies using tobacco. - Ebola Screening: : No symptoms or risks identified at this time. Screenin:45 Abuse screen: Denies threats or abuse. Denies injuries from another. Nutritional ak1 screening: No deficits noted. Tuberculosis screening: No symptoms or risk factors identified. Fall Risk None identified. Assessment: 06/18 00:23 General: Appears in no apparent distress. Behavior is calm, cooperative, appropriate tl1 for age. Pain: Denies pain. Neuro: Level of Consciousness is awake, alert, obeys commands, Oriented to person, place, time, situation. Cardiovascular: Denies chest pain. Respiratory: Airway is patent Trachea midline Respiratory effort is even, unlabored, Breath sounds are clear bilaterally. GI: Abdomen is non-distended, Bowel sounds present X 4 quads. Abd is soft and non tender X 4 quads. : No signs and/or symptoms were reported regarding the genitourinary system. EENT: No signs and/or symptoms were reported regarding the EENT system. Derm: No signs and/or symptoms reported regarding the dermatologic system. Musculoskeletal: No signs and/or symptoms reported regarding the musculoskeletal system. 01:02 Reassessment: Patient is alert, oriented x 3, equal unlabored respirations, skin tl1 warm/dry/pink. Patient denies pain at this time. Patient states symptoms have improved. Vital Signs: 06/17 23:43 BP 180 / 65; Pulse 73; Resp 16; Temp 98.2; Pulse Ox 100% on R/A; Weight 97.52 kg (R); ak1 Height 5 ft. 7 in. (170.18 cm) (R); Pain 3/10; 06/18 00:25 BP 155 / 63; Pulse 77; tl1 01:02 BP 136 / 69; Pulse 79; Resp 17; Temp 98.2; Pulse Ox 98% ; Pain 0/10; tl1 06/17 23:43 Body Mass Index 33.67 (97.52 kg, 170.18 cm) ak1 ED Course: 06/17 23:37 Patient arrived in ED. es 23:38 Sasha Savage MD is Private Physician. es 23:42 Triage completed. ak1 23:43 Arm band placed on Patient placed in an exam room, on a stretcher, Patient notified of ak1 wait time. 23:43 Patient has correct armband on for positive identification. Bed in low position. Call tl1 light in reach. Side rails up X 1. 23:47 Srinivasan Snider MD is Attending Physician. 06/18 00:23 Tatianna Barragan, RN is Primary Nurse. tl1 00:24 No provider procedures requiring assistance completed. Patient did not have IV access tl1 during this emergency room visit. Administered Medications: No medications were administered Outcome: 00:49 Discharge ordered by . 01:00 Discharged to home ambulatory, with family. tl1 01:00 Condition: good 01:00 Discharge instructions given to patient, family, Instructed on discharge instructions, follow up and referral plans. Demonstrated understanding of instructions, follow-up care. 01:02 Patient left the ED. tl1 Signatures: Anitha Toledo Tonya, RN RN tl1 Yolanda Pinon RN RN ak1 Srinivasan Snider MD MD
== END 2018-06-18 01:02 | disposition home or self-care (01) ==
LOC: ER 23:35
DX: I10 Essential (primary) hypertension (principal); J44.9 Chronic obstructive pulmonary disease, unspecified; Z88.8 Allergy status to other drugs, medicaments and biological substances
CPT/HCPCS: 99281

== ENCOUNTER 2018-06-24 07:05 | Day surgery (SDC) | payer OTHER ==
[2018-06-23 13:05] LABS: Absolute Lymphocytes (CBC) 2.4 K/uL (0.7-4.9); Absolute Monocytes 0.9 K/uL (0.1-1.3); Absolute Neutrophil 6.4 K/uL (1.8-8.0); Basophils % 0.8 % (0-1.3); Eosinophils % 2.8 % (0-4.4); Hematocrit 39.1 % (36.0-45.0); Lymphocytes % 23.9 % (15.3-44.8); MCH 29.4 pg (27.0-35.0); MCV 85.4 fL (80-100); MPV 7.8 fL (7.6-11.3); Monocytes % 8.6 % (3.3-12.3); RBC Red Blood Cell Count 4.58 M/uL (3.86-4.86)
[2018-06-23 13:06] LABS: Potassium 4.7 mmol/L (3.5-5.1)
--- NOTE | 2018-06-23 15:10 | EKG ---
Test Date: 2018-06-23 Test Time: 12:22:42 Comfort Filler: LORE MEASUREMENT RESULTS: Intervals: Rate: 66 WI: 142 QRSD: 82 QT: 424 QTc: 444 [place]: P: 69 WI: 142 QRS: -17 T: 45 INTERPRETIVE STATEMENTS: Normal sinus rhythm Possible Left atrial enlargement Borderline ECG Compared to ECG 05/30/2018 08:22:59 No significant changes Electronically Signed On 06-23-18 15:09:57 SEWING MACHINE TESTER by Sonido Vasquez
[2018-06-24] MEDS ORDERED: NA CHLORIDE 0.9% 500 ML ONE (07:41)
[2018-06-24] MEDS ORDERED: HEPA 1000U/500MLS 2,000 UNIT/1,000 ML BAG IV ONE (08:55)
[2018-06-24] MEDS ORDERED: NA CHLORIDE 0.9% 0 ML ONE (08:56)
[2018-06-24] MEDS ORDERED: FENTANYL CITR 100 MCG/2 ML ONE (08:56)
[2018-06-24] MEDS ORDERED: ATROPINE SULF 1 MG/10 ML SYR IV ONE (08:56)
[2018-06-24] MEDS ORDERED: MIDAZOLAM HCL 2 MG/2 ML INJ ONE ×2 (08:56→09:11)
--- NOTE | 2018-06-24 21:25 | OP ---
Date of Procedure: 06/24/2018 Surgeon: Angel Johns MD Ccu Nurse: Terence Amaya. Total conscious sedation was 45 minutes. Procedure Performed: Aortic arch angiogram, bilateral selective subclavian and carotid angiogram. Indication: Left subclavian steal syndrome. Abnormal ultrasound of the carotid and subclavian. Description Of Procedure: The patient was brought to the radiographer cardiac catheterization as an outpatient, prepped and drap ed in the routine sterile fashion, given 2 mg of IV Versed for sedation. A 6-Cambodian sheath introduce d in the right common femoral artery. Angiogram, there was normal. Angio-Seal was used to close the case. The pigtail catheter was introduced across the aortic arch. Angiography was done there of th e aortic arch first. Selective bilateral subclavian and bilateral carotid angiogram were done later with a JR4 catheter. She was subsequently found to have a normal innominate artery, normal right com mon carotid, normal right vertebral artery. She had 100% subclavian stenosis at the ostium. She had a 50% left internal carotid artery with collaterals to the left vertebral. There were no complicati ons. Blood loss was 5 mL. Postoperative Diagnosis: 100% occlusion of the left subclavian steal, moderate carotid stenosis on t he left. Plan: Plan for medical therapy. YAN/JAY Voice ID: [id number] Report ID: [id number]
== END 2018-06-24 11:50 | disposition home or self-care (01) ==
LOC: CCL 07:05
DX: G45.8 Other transient cerebral ischemic attacks and related syndromes (principal); I65.22 Occlusion and stenosis of left carotid artery; I10 Essential (primary) hypertension; K21.9 Gastro-esophageal reflux disease without esophagitis; Z88.6 Allergy status to analgesic agent; Z79.82 Long term (current) use of aspirin; Z82.49 Family history of ischemic heart disease and other diseases of the circulatory system
CPT/HCPCS: 36222; 36225; 36415; 80048; 85025; 85730; 93005; 93567; C1760; J2250 ×2; J3010; J0583

== ENCOUNTER 2018-07-06 09:06 | Emergency (ER) | payer OTHER ==
--- OUTSIDE RECORDS SUMMARY | 2018-07-06 09:08 | XMS REPORT ---
:1935 [facility] Address [address] [place] [address] Dr. Marquez[address] [place] [address] Care Team Providers Name Role Phone Unavailable Unavailable Unavailable Problems This patient has no known problems. Allergies, Adverse Reactions, Alerts This patient has no known allergies or adverse reactions. Medications This patient has no known medications.
[2018-07-06] MEDS ORDERED: NA CHLORIDE 0.9% 250 ML ONE (09:37)
[2018-07-06 09:45] LABS: Absolute Lymphocytes (CBC) 1.6 K/uL (0.7-4.9); Absolute Monocytes 1.3 K/uL (0.1-1.3); Absolute Neutrophil 9.2 K/uL (1.8-8.0); Basophils % 0.7 % (0-1.3); Eosinophils % 1.6 % (0-4.4); Hematocrit 38.1 % (36.0-45.0); Lymphocytes % 12.9 % (15.3-44.8); MCV 84.1 fL (80-100); MPV 7.7 fL (7.6-11.3); Monocytes % 10.2 % (3.3-12.3); RBC Red Blood Cell Count 4.53 M/uL (3.86-4.86)
[2018-07-06 10:06] LABS: Albumin 3.4 g/dL (3.4-5.0); Bilirubin Direct 0.2 mg/dL (0-0.2); Bilirubin Total 0.7 mg/dL (0.2-1.0); Potassium 3.7 mmol/L (3.5-5.1); Protein, Total 7.1 g/dL (6.4-8.2)
[2018-07-06] MEDS ORDERED: PIPER/TAZO/NS 3.375gm 3.375 GM/100 ML BAG ONE (10:53)
[2018-07-06] MEDS ORDERED: VANCOMYCIN 1 GM/250 ML BAG ONE (10:53)
--- NOTE | 2018-07-06 11:02 | RAD REPORT ---
EXAM DESCRIPTION: Shantell Single View07/06/2018 10:56 am CLINICAL HISTORY: Chest pain COMPARISON: May 2018 FINDINGS: The lungs appear clear of acute infiltrate. The heart is normal size IMPRESSION: No acute abnormalities displayed
--- NOTE | 2018-07-06 11:02 | RAD REPORT ---
EXAM DESCRIPTION: CT - Soft Tissue Neck W/Contr - 07/06/2018 10:27 am CLINICAL HISTORY: Neck pain and neck swelling COMPARISON: None. TECHNIQUE: Computed axial tomography of the neck was obtained. 50 cc Isovue-300 administered intrave nously. All CT scans are performed using dose optimization technique as appropriate and may include automated exposure control or mA/KV adjustment according to patient size. FINDINGS: The left submandibular gland is enlarged with increased density. Edema is present within t he adjacent subcutaneous fat. The edema extends into the the deeper soft tissues medially. The left a spect of the epiglottis is mildly thickened. The left lateral wall of the hypopharynx is mildly edema tous. Air within the tissues is not visualized. An abscess is not seen. The parotid and right submandibular gland appear unremarkable. Thyroid gland appears unremarkable. Fluid within the sinuses is not noted. The patient is edentulous IMPRESSION: Left submandibular space infection with involvement of the epiglottis, left base of tong ue and left lateral hypopharynx. Mild narrowing of the airway is noted The exam was discussed with Dr Snider in the Emergency Room at 10:41 a.m. 07/06/2018
--- NOTE | 2018-07-06 11:14 | ER ---
Nurse's Notes [facility] Name: Suzanna Loving Age: 83 yrs Sex: Female : 1935 Arrival Date: 07/06/2018 Time: 09:08 Bed 6 Private MD: Sasha Savage C Diagnosis: Fasciitis of neck Presentation: 07/06 09:24 Presenting complaint: Patient states: I began having some left sided facial swelling la1 and neck swelling /Saturday and now it is affecting my speech. Transition of care: patient was not received from another setting of care. Onset of symptoms was July 06, 2018. Risk Assessment: Do you want to hurt yourself or someone else? Patient reports no desire to harm self or others. Initial Sepsis Screen: Does the patient meet any 2 criteria? No. Patient's initial sepsis screen is negative. Does the patient have a suspected source of infection? No. Patient's initial sepsis screen is negative. Care prior to arrival: None. 09:24 Method Of Arrival: Ambulatory la1 09:24 Acuity: ARTHUR 3 la1 Historical: - Allergies: 09:25 Pyridium; la1 - PMHx: 09:25 BRADYCARDIA; COPD; Hypertension; la1 - Immunization history:: Adult Immunizations up to date. - Social history:: Smoking status: Patient/guardian denies using tobacco. - Ebola Screening: : No symptoms or risks identified at this time. Screenin:26 Abuse screen: Denies threats or abuse. Nutritional screening: No deficits noted. la1 Tuberculosis screening: No symptoms or risk factors identified. Fall Risk None identified. Assessment: 09:26 General: Appears in no apparent distress. Behavior is calm, cooperative. Pain: Denies la1 pain. Neuro: Level of Consciousness is awake, alert, obeys commands, Oriented to person, place, time, situation. Cardiovascular: Heart tones S1 S2 Capillary refill < 3 seconds Patient's skin is warm and dry. Respiratory: Airway is patent Respiratory effort is even, unlabored, Respiratory pattern is regular, symmetrical, Breath sounds are clear bilaterally. GI: No signs and/or symptoms were reported involving the gastrointestinal system. : No signs and/or symptoms were reported regarding the genitourinary system. Derm: swelling left side of neck and face, mild. 10:52 Reassessment: No changes from previously documented assessment. Patient is alert, la1 oriented x 3, equal unlabored respirations, skin warm/dry/pink. Respiratory: Airway is patent Trachea midline Respiratory effort is even, unlabored, Respiratory pattern is regular, symmetrical. Vital Signs: 09:25 BP 97 / 68; Pulse 71; Resp 16; Temp 98.4; Pulse Ox 98% on R/A; Weight 96.62 kg; Height la1 5 ft. 7 in. (170.18 cm); 09:37 BP 145 / 74; Pulse 71; Resp 16; Pulse Ox 98% on R/A; la1 10:52 BP 147 / 74; Pulse 71; Resp 16; Temp 97.1; Pulse Ox 98% on R/A; la1 12:00 BP 166 / 61; Pulse 82; Resp 16; Pulse Ox 98% on R/A; la1 09:25 Body Mass Index 33.36 (96.62 kg, 170.18 cm) la1 ED Course: 09:08 Patient arrived in ED. sb2 09:09 Sasha Savage MD is Private Physician. sb2 09:15 Mohan Butler PA is PHCP. cp 09:15 Srinivasan Snider MD is Attending Physician. cp 09:23 Joel Menjivar, HOLLIE is Primary Nurse. la1 09:24 Triage completed. la1 09:25 Arm band placed on right wrist. la1 09:26 Bed in low position. Call light in reach. la1 09:37 No provider procedures requiring assistance completed. Inserted saline lock: 22 gauge la1 in left antecubital area, using aseptic technique. Blood collected. 10:27 CT completed. Patient moved to CT via wheelchair. Patient moved back from CT. bq 10:55 X-ray completed. Portable x-ray completed in exam room. Patient tolerated procedure sg4 well. 11:12 initiated a transfer with Maribel at the [facility] transfer center. eb 11:[address] Durham with Mohan CHAWLA for patient transfer consultation. eb 11:31 per [facility] ENT flight control tower operator the patient needs oral maxillofacial surgeon services eb which they do no have flight control tower operator this weekend and would need to find a facility who has these services. 11:32 initiated a transfer with Zarina at the [facility] [place]. eb 11:[address] Arroyo from [facility] with Dr. Snider for patient transfer eb consultaton. 11:47 administrative approval given by Zarina Vila RN/ Patient is going to the ER/ Report eb to be called to [phone]/ Dr. Arroyo accepted the patient in transfer. 13:01 Patient transferred, IV remains in place. intact. la1 Administered Medications: 09:36 Drug: NS 0.9% 250 ml Route: IV; Rate: bolus; Site: left antecubital; la1 12:02 Follow up: IV Status: Completed infusion la1 10:52 Drug: Zosyn 3.375 grams Route: IVPB; Infused Over: 60 mins; Site: left antecubital; la1 11:23 Follow up: IV Status: Completed infusion la1 11:23 Drug: vancoMYCIN 1 grams Route: IVPB; Infused Over: 2 hrs; Site: left antecubital; la1 11:58 Follow up: IV Status: continued on transer la1 11:58 Drug: Decadron - Dexamethasone 10 mg Route: IVP; Site: left antecubital; la1 12:02 Follow up: Response: No adverse reaction la1 Outcome: 11:13 ER care complete, transfer ordered by MD. ye 12:55 Patient left the ED. iw 13:01 Transferred by ground EMS to [facility], Transfer form completed. X-rays sent la1 w/ patient. 13:01 Condition: stable 13:01 Instructed on the need for transfer. Signatures: Priya Lopez Irene, RN RN iw Joel Menjivar RN RN la1 Mohan Butler PA PA cp Billeau, Sheri sb2 Nilam Chowdary Susana 4
--- NOTE | 2018-07-06 11:15 | EDPHYS ---
Physician Documentation [facility] Name: Suzanna Loving Age: 83 yrs Sex: Female : 1935 Arrival Date: 07/06/2018 Time: 09:08 Bed 6 Private MD: Sasha Savage C ED Physician Srinivasan Snider HPI: 07/06 09:30 This 83 yrs old Female presents to ER via Ambulatory with complaints of cp Facial Swelling. 09:30 The patient presents with dysphagia, of both solids and liquids. cp 09:30 Onset: The symptoms/episode began/occurred 4 day(s) ago. Severity of symptoms: in the cp emergency department the symptoms are unchanged. Associated signs and symptoms: Pertinent positives: pain and swelling left lower jaw and upper neck area, Pertinent negatives cough, fever, shortness of breath. Patient reports she was seen at urgent care and prescribed Augmentin, but symptoms have worsened. Historical: - Allergies: 09:25 Pyridium; la1 - PMHx: 09:25 BRADYCARDIA; COPD; Hypertension; la1 - Immunization history:: Adult Immunizations up to date. - Social history:: Smoking status: Patient/guardian denies using tobacco. - Ebola Screening: : No symptoms or risks identified at this time. ROS: 09:35 Constitutional: Negative for body aches, chills, fever, poor PO intake. cp 09:35 Eyes: Negative for injury, pain, redness, and discharge. cp 09:35 ENT: Positive for difficulty swallowing, Negative for drainage from ear(s), ear pain, sore throat, difficulty handling secretions. 09:35 Neck: Positive for swelling, tenderness, of the left lower jaw and upper neck area. 09:35 Cardiovascular: Negative for chest pain, edema, palpitations. 09:35 Respiratory: Negative for cough, shortness of breath, wheezing. 09:35 Abdomen/GI: Negative for abdominal pain, nausea, vomiting, and diarrhea. 09:35 Skin: Negative for rash. 09:35 All other systems are negative. Exam: 09:42 Constitutional: The patient appears in no acute distress, alert, awake, cp non-diaphoretic, non-toxic, well developed, well nourished. 09:42 Head/face: Noted is swelling, that is mild, of the left jaw and left upper neck, cp tenderness, that is mild. 09:42 Eyes: Periorbital structures: appear normal, Pupils: equal, round, and reactive to light and accomodation, Extraocular movements: intact throughout, Conjunctiva: normal, no exudate, no injection, Sclera: no appreciated abnormality, Lids and lashes: appear normal, bilaterally. 09:42 ENT: External ear(s): are unremarkable, Ear canal(s): are normal, clear, TM's: dullness, bilaterally, Nose: is normal, Mouth: Lips: moist, Oral mucosa: pink and intact, moist, Tongue: is normal, abscess, is not appreciated, Posterior pharynx: Airway: no evidence of obstruction, patent, Uvula: midline, erythema, is not appreciated, exudate, is not appreciated, Dental exam: the patient wears dentures, in place. 09:42 Neck: External neck: swelling, that is mild, left lateral upper neck, tenderness, that is mild, left lateral upper neck, ROM/movement: is normal, is supple, no range of motions limitations, no nuchal rigidity. 09:42 Chest/axilla: Inspection: normal, Palpation: is normal, no crepitus, no tenderness. 09:42 Cardiovascular: Rate: normal, Rhythm: regular, Edema: is not appreciated, JVD: is not appreciated. 09:42 Respiratory: the patient does not display signs of respiratory distress, Respirations: normal, no use of accessory muscles, no retractions, no splinting, no tachypnea, labored breathing, is not present, Breath sounds: are clear throughout, no decreased breath sounds, no stridor, no wheezing. 09:42 Abdomen/GI: Inspection: abdomen appears normal, Palpation: abdomen is soft and non-tender, in all quadrants, rebound tenderness, is not appreciated, voluntary guarding, is not appreciated, involuntary guarding, is not appreciated. 09:42 Skin: no rash present. 09:42 Neuro: Orientation: to person, place \T\ time. Mentation: is normal, Cerebellar function: is grossly normal, Motor: moves all fours, strength is normal, Sensation: is normal. Vital Signs: 09:25 BP 97 / 68; Pulse 71; Resp 16; Temp 98.4; Pulse Ox 98% on R/A; Weight 96.62 kg; Height la1 5 ft. 7 in. (170.18 cm); 09:37 BP 145 / 74; Pulse 71; Resp 16; Pulse Ox 98% on R/A; la1 10:52 BP 147 / 74; Pulse 71; Resp 16; Temp 97.1; Pulse Ox 98% on R/A; la1 12:00 BP 166 / 61; Pulse 82; Resp 16; Pulse Ox 98% on R/A; la1 09:25 Body Mass Index 33.36 (96.62 kg, 170.18 cm) la1 MDM: 09:15 Patient medically screened. cp 10:00 Differential diagnosis: group A strep tonsillitis, garett's angina, peritonsillar cp abscess retropharyngeal abcess tonsillitis, uvulitis. 11:07 Data reviewed: vital signs, nurses notes, lab test result(s), radiologic studies, CT cp scan. 11:10 Counseling: I had a detailed discussion with the patient and/or guardian regarding: the cp historical points, exam findings, and any diagnostic results supporting the discharge/admit diagnosis, lab results, radiology results, the need to transfer to another facility. 12:50 ED course: VSS. Reevaluation: Patient with no signs of respiratory distress, airway cp patent, non-toxic appearance. 07/06 09:24 Order name: CBC with Diff 07/06 09:24 Order name: CMP cp 07/06 09:24 Order name: LFT's cp 07/06 09:52 Order name: CBC with Automated Diff; Complete Time: 10:42 EDMS 07/06 11:05 Interpretation: Normal except: WBC 12.3; ANTONIETA% 74.6; LYM% 12.9; NEUT A 9.2. 07/06 10:06 Order name: Comprehensive Metabolic Panel; Complete Time: 10:42 EDMS 07/06 10:06 Order name: Liver (Hepatic) Function; Complete Time: 10:42 EDMS 07/06 09:26 Order name: CT Soft Tissue Neck W/contr cp 07/06 10:44 Order name: XRAY Chest (1 view) 07/06 11:02 Order name: CT; Complete Time: 11:04 EDMS 07/06 11:03 Order name: RAD; Complete Time: 11:04 EDMN 07/06 09:24 Order name: IV; Complete Time: 09:37 07/06 11:04 Order name: NPO; Complete Time: 11:07 cp Administered Medications: 09:36 Drug: NS 0.9% 250 ml Route: IV; Rate: bolus; Site: left antecubital; la1 12:02 Follow up: IV Status: Completed infusion la1 10:52 Drug: Zosyn 3.375 grams Route: IVPB; Infused Over: 60 mins; Site: left antecubital; la1 11:23 Follow up: IV Status: Completed infusion la1 11:23 Drug: vancoMYCIN 1 grams Route: IVPB; Infused Over: 2 hrs; Site: left antecubital; la1 11:58 Follow up: IV Status: continued on transer la1 11:58 Drug: Decadron - Dexamethasone 10 mg Route: IVP; Site: left antecubital; la1 12:02 Follow up: Response: No adverse reaction la1 Disposition: 11:20 Chart complete. cp 18:47 Co-signature as Attending Physician, Srinivasan Snider MD. Disposition: 07/06/18 11:13 Transfer ordered to [facility]. Diagnosis is Fasciitis of neck. - Reason for transfer: Higher level of care. - Accepting physician is DR Arroyo. - Condition is Stable. - Problem is new. - Symptoms are unchanged. Signatures: Dispatcher [employer] Melissa Justin RN RN iw Attema, Lee, RN RN la1 Mohan Butler PA PA cp Srinivasan Snider MD MD Corrections: (The following items were deleted from the chart) 11:53 11:13 07/06/2018 11:13 Transfer ordered to [facility]. Diagnosis is cp Fasciitis of neck. Reason for transfer: Higher level of care. Accepting physician is Condition is Stable. Problem is new. Symptoms are unchanged. cp 12:55 11:53 07/06/2018 11:13 Transfer ordered to [facility]. iw Diagnosis is Fasciitis of neck. Reason for transfer: Higher level of care. Accepting physician is DR Arroyo. Condition is Stable. Problem is new. Symptoms are unchanged. cp
[2018-07-06] MEDS ORDERED: DEXAMETHASONE 10 MG/ML VIAL ONE (11:57)
== END 2018-07-06 12:55 | disposition short-term general hospital (02) ==
LOC: ER 09:06
DX: M72.9 Fibroblastic disorder, unspecified (principal); I10 Essential (primary) hypertension; Z88.8 Allergy status to other drugs, medicaments and biological substances
CPT/HCPCS: 36415; 70491; 71045; 80053; 82248; 85025; 96365; 96367; 96375; 99285; J1100; J2543; J3370; Q9967

== ENCOUNTER 2020-05-05 19:18 | Emergency (ER) | payer OTHER ==
--- OUTSIDE RECORDS SUMMARY | 2020-05-05 19:20 | XMS REPORT | Clinical Summary ---
:1935 Author Organization [facility] Address [address] [place] [address] Care Team Providers Name Role Phone Unavailable Primary Care Provider Unavailable Allergies Not on File Medications Not on file Active Problems Not on file Social History Tobacco Use Types Packs/Day Years Used Date Never Assessed Sex Assigned at Date Recorded Not on file Last Filed Vital Signs Not on file Plan of Treatment Not on file Results Not on fileafter 05/05/2019
--- OUTSIDE RECORDS SUMMARY | 2020-05-05 19:20 | XMS REPORT | Summary of Care ---
:1935 Author Organization [facility] Address [address] [place] [id number] Care Team Providers Name Role Phone Sasha Wells MD Primary Care Provider Selbst Unavailable MD Tracy Unavailable Reason for Visit Reason Comments Follow-up Encounter Details Date Type Department Care Team Description 01/22/2020 Office Visit [facility] Pediatric Kyle Wells hypertension, benign (Primary Dx); and Adult Primary Delia Curry Medicare annual wellness visit, [facility] [place] nt; Care- [address] Ear pain, bilateral; [address] [place] [address] [address] SOB (shortness of breath); [address], [address] [place] [address] Routine adult health maintenance [place], [place] [phone] Allergies Active Allergy Reactions Severity Noted Date Comments Carvedilol Other - See comments 10/08/2018 Tightne ss in chest Atorvastatin Other - See comments 10/08/2018 cramps documented as of this encounter (statuses as of 02/07/2020) Medications Medication Sig Dispensed Refills Start Date End Date Status aspirin 81 mg EC Take 81 mg by 0 Active tablet mouth daily. lisinopril-hydroc Take 1 tablet 90 tablet 3 07/17/2019 Active hlorothiazide by mouth 20-25 mg per daily. tablet fluticasone Use 1 [place] in 16 g 3 01/22/2020 Ac tive propionate 50 each nostril 2 mcg/actuation (two) times nasal daily. sprayIndications: Medicare annual wellness visit, subsequent albuterol 90 Inhale 2 Puffs 8.5 g 11 01/22/2020 A ctive mcg/actuation every 6 (six) inhalerIndication hours as s: SOB (shortness needed for of breath) Shortness of Breath. neomycin-polymyxi Put in 2 drops 10 mL 3 01/22/2020 Active n-hydrocortisone daily for ear 3.5-10,000-1 pain, can use mg/mL-unit/mL-% in both ears otic if needed. suspIndications: Ear pain, bilateral FLUTICASONE USE 1 SPRAY IN 16 g 3 03/10/2019 Di scontinued PROPIONATE 50 EACH NOSTRIL 2 0 ( Reorder) mcg/actuation (TWO) TIMES nasal DAILY. sprayIndications: Medicare annual wellness visit, subsequent albuterol sulfate Inhale 108 mcg 0 02 Discontinued (PROAIR HFA every 6 (six) 0 (Dup licate) INHALE) hours as needed. NEOMYCIN-POLYMYXI Place 1 % in 0 Discontinued N-HC OTIC each ear 3 0 (Duplicat e) (three) times daily. 2 drops into both ears tid documented as of this encounter (statuses as of 02/07/2020) Active Problems No known active problemsdocumented as of this encounter (statuses as of 02/07/2020) Immunizations Name Administration Dates Next Due Td 04/26/2018 documented as of this encounter Social History Tobacco Use Types Packs/Day Years Used Date Former Smoker 50 Smokeless Tobacco: Former User Alcohol Use Drinks/Week oz/Week Comments No Sex Assigned at Date Recorded Not on file Job Start Date Occupation Industry Not on file Not on file Not on file Travel History Travel Start Travel End No recent travel history available. COVID-19 Exposure Response Date Recorded In the last month, have you been in contact with No / Unsure 01/22/2020 9:51 AM CDT someone who was confirmed or suspected to have Coronavirus / COVID-19? documented as of this encounter Last Filed Vital Signs Vital Sign Reading Time Taken Comments Blood Pressure 149/75 01/22/2020 10:18 AM CDT Pulse 64 01/22/2020 10:18 AM CDT Temperature 36.3 C (97.4 F) 01/22/2020 10:18 AM CDT Respiratory Rate 18 01/22/2020 10:18 AM CDT Oxygen Saturation 100% 01/22/2020 10:18 AM CDT Inhaled Oxygen Concentration - - Weight 95.6 kg (210 lb 11.2 oz) 01/22/2020 10:18 AM CDT Height - - Body Mass Index 31.57 07/17/2019 9:39 AM [employer] documented in this encounter Patient Instructions Patient InstructionsScott Gannon - 01/22/2020 10:00 AM CDT https://www.heart.org/en/healthy-living/healthy-eating/add-color/kpjaqq-dco-vdis aslrxi-rxznsee-xnexr Plant based diet/Anti-inflammatory diet information/plant based recipes https://www.SuperLikers/ http://InnerRewards/ Search Google or Jelastic and multiple articles/sites will pop up -Common pitfalls of a plant based diet -Plant based on a budget Dr. Naya Cabrera Green smoothie: 75% raw greens, such as baby spinach or kale, and 25% fruit, fresh or frozen. Add 75% water and a teaspoon of flax seed meal then blend together. Follow up in 6 months for next visit. documented in this encounter Progress Notes Nilam Wells MD - 01/22/2020 10:00 AM CDT DOS: 01/22/2020 CC: Follow up of chronic conditions HPI: Suzanna Loving is a 84 year old female with history including has a past medical historyof CAD (coronary artery disease), COPD (chronic obstructive pulmonary disease), History of breast cancer, History of hyperlipidemia, Hypertension, and Sinusitis. who is being seen today for follow up of chronic conditions. Blood pressure generally runs at 130/75 on home monitoring. Hx of COPD. States that due to recent Simran Dust, she has been having mild difficulty breathing occasionally. Uses Flonase 1-2x a week and Albuterol. Occasional ear pain bilaterally. Using neomycin drops bid with relief. Medications reviewed in EPIC, past medical history and allergies reviewed. Review of Systems HENT: Positive for ear pain. Respiratory: Negative for shortness of breath. Cardiovascular: Negative for chest pain. PE: Blood pressure (!) 149/75, pulse 64, temperature 36.3 C (97.4 F), temperature source Temporal Artery, resp. rate 18, weight 210 lb 11.2 oz (95.6 kg), SpO2 100 %. Physical Exam Constitutional: She is oriented to person, place, and time. She appears well- developed and well-nourished. No distress. HENT: Head: Normocephalic and atraumatic. Right Ear: External ear normal. Left Ear: External ear normal. Nose: Nose normal. No tracheal deviation Eyes: Lids are normal. Right eye exhibits no discharge. Left eye exhibits no discharge. No scleral icterus. Left and right eyelids normal. Cardiovascular: Normal rate, regular rhythm and normal heart sounds. Exam reveals no gallop and no friction rub. No murmur heard. Pulmonary/Chest: Effort normal and breath sounds normal. No respiratory distress. She has no wheezes. She has no rales. Abdominal: Normal appearance. GI system: Soft. No distension, bowel sounds are normal. There is no tenderness. Neurological: She is alert and oriented to person, place, and time. No tremors. Normal gait. Skin: Skin is warm and dry. No rash noted. She is not diaphoretic. Psychiatric: She has a normal mood and affect. Her speech is normal and behavior is normal. Pleasant. Vitals reviewed. Results: No new labs A/P: Suzanna Loving is a 84 year old female with history including has a past medical history of CAD (coronary artery disease), COPD (chronic obstructive pulmonary disease), History of breast cancer, History of hyperlipidemia, Hypertension, and Sinusitis. who is being seen today for chronic medical conditions. 1. Essential hypertension, benign Stable. - Continue current regimen. - Recommended plant-based diet. 2. Routine Adult Health Maintenance Refill provided for flonase, per patient request. Ordered annual labs for next year. - fluticasone propionate 50 mcg/actuation nasal spray; Use 1 [place] in each nostril 2 (two) times daily. Dispense: 16 g; Refill: 3 -ordered annual labs for next year. 3. Ear pain, bilateral Chronic. Well-controlled with neomycin drops. - mosvnafj-hhpvleyfc-clnlyhgiqlqari 3.5-10,000-1 mg/mL-unit/mL-% otic susp; Put in 2 drops daily forear pain, can use in both ears if needed. Dispense: 10 mL; Refill: 3 4. SOB (shortness of breath) Worse with recent Simran Dust. - albuterol 90 mcg/actuation inhaler; Inhale 2 Puffs every 6 (six) hours as needed for Shortness of Breath. Dispense: 8.5 g; Refill: 11 Return in about 6 months (around 07/24/2020) for chronic condition management. Plan of care, desired health behaviors, goals,& medication discussed with patient and educational resources and self management tools provided as appropriate. Patient/family/guardian voices understanding. Patient verbalized understanding & agrees to plan of care. Barriers to care: none Ability to manage care: good Scribe's Attestation Scott Crane , am scribing for, and in the presence of, Nilam Wells MD who performedthe services described here-in. Scott Gannon, January 22, 2020, 10:54 AM Physician's Attestation Nilam Crane MD, personally performed the services described in this documentation, as scribed by, Scott Gannon in my presence and it is both accurate and complete. Nilam Wells MD, February 07, 2020, 7:55 PM documented in this encounter Plan of Treatment Date Type Specialty Care Team Description 07/25/2020 Office Visit Internal Medicine Laverne Wells MD [address] [place] [address] 15 [phone] Name Type Priority Associated Diagnoses Order S chedule CBC WITH DIFF LAB Routine Routine adult health 1 Occu rrences starting maintenance 02/07/2020 unti l 02/06/2022 COMP. METABOLIC PANEL LAB Routine Routine adult healt h 1 Occurrences starting (92507) maintenance 02/07/2020 unti l 02/06/2022 THYROID STIMULATING LAB Routine Routine adult health 1 Occurrences starting HORMONE maintenance 02/07/2020 unti l 02/06/2022 LIPID PANEL (62023)(TOTAL LAB Routine Routine adult h ealth 1 Occurrences starting CHOLESTEROL, maintenance 02/07/2020 unti l TRIGLYCERIDES, HDL) 02/07/20 22 GLYCOSYLATED HEMOGLOBIN LAB Routine Routine adult hea lth 1 Occurrences starting (A1C) maintenance 02/07/2020 unti l 02/06/2022 FREE T4 LAB Routine Routine adult health 1 Occur rences starting maintenance 02/07/2020 unti l 02/06/2022 FREE T3 LAB Routine Routine adult health 1 Occur rences starting maintenance 02/07/2020 unti l 02/06/2022 Health Maintenance Due Date Last Done Comments Medicare Wellness Visit 2001 Depression Screening 07/17/2020 07/17/2019 INFLUENZA VACCINE (#1) 2020 Postponed from 03/22/2020 (Refused) PNEUMOCOCCAL VACCINES 65+ (1 of 2 07/17/2020 Postponed from 2001 - PCV13) (Refused) Zoster Recombinant Vaccine 07/17/2020 Postp oned from 1986 (SHINGRIX) (1 of 2) (Refused) Osteoporosis Screening 05/27/2024 05/27/2014 DTaP,Tdap,and Td Vaccines (1 - 08/10/2027 04/26/2018 P ostponed from 1947 Tdap) (Alternative Krystian delines) documented as of this encounter Results Not on filedocumented in this encounter Visit Diagnoses Diagnosis Essential hypertension, benign - Primary Medicare annual wellness visit, subseque nt Routine general medical examination at a health care facility Ear pain, bilateral SOB (shortness of breath) Shortness of breath Routine adult health maintenance Routine general medical examination at a health care facility documented in this encounter Insurance Payer Benefit Plan Subscriber ID Effective Phone Address Typ e / Group Dates AETNA - AETNA [id number] 2018-[id number] [address] BOX Medic are Adv [place]NAGED MEDICARE [place] nt [id number] [place] [address] documented as of this encounter
--- OUTSIDE RECORDS SUMMARY | 2020-05-05 19:20 | XMS REPORT | Continuity of Care Document ---
:1935 Author Organization [facility] t Address [address] [place] [address] Care Team Providers Name Role Phone Russell SEVERINO, Sasha Attending Clinician Provider, Urgent Care Attending Clinician Unavailable Problems This patient has no known problems. Allergies, Adverse Reactions, Alerts This patient has no known allergies or adverse reactions. Social History Social Habit Start Date Stop Date Quantity Comments Source Sex Assigned At [facility] Medications This patient has no known medications. Procedures This patient has no known procedures. Encounters Start End Encounter Admission Attending Care Care Encounter Source Date/Time Date/Time Type Type Clinicians Facility Department ID 2020-04-29 2020-04-29 Telephone Russell [facility] [id number] 00:00[facility]00 [id number] [facility] [id number] Professio [phone] [place] [address] [address] 2020-04-28 2020-04-28 Refill Wells [facility] [id number] 00:00:00 00:00:00 Nilam [place] [id number] [place] [id number] Professio [phone] [place] [address] Building 2020-04-27 2020-04-27 [facility] [id number] 09:43:26 10:03:26 Care [facility] [id number] Care [place] [id number] Professio [phone] [place] [address] 2020-01-22 2020-01-22 Office ARNULFO Wells [id number] 09:55:31 11:18:59 Visit Nilam Sasha [place] [id number] [place] [id number] Professio [phone] [address] Results This patient has no known results.
--- OUTSIDE RECORDS SUMMARY | 2020-05-05 19:20 | XMS REPORT | Summary of Care ---
:1935 Author Organization [facility] Address [address] [place] [id number] Care Team Providers Name Role Phone Sasha Wells MD Primary Care Provider Selbst Unavailable MD Tarcy Unavailable Reason for Visit Reason Comments NASAL DRAINAGE Cough x 1 wk, pt denies fever, SOB , NVD Headache Encounter Details Date Type Department Care Team Description 04/27/2020 Urgent Care [facility] Family Cathy Lima, CAMMY [address] [place] [id number] Acute URI (Primary Dx); Medicine - [place] Provider, [facility] Exposure to SARS-associated coronavirus; [address] [place] [address] [place] [address] Allergies Active Allergy Reactions Severity Noted Date Comments Carvedilol Other - See comments 10/08/2018 Tightne ss in chest Atorvastatin Other - See comments 10/08/2018 cramps documented as of this encounter (statuses as of 04/27/2020) Medications Medication Sig Dispensed Refills Start Date End Date Status aspirin 81 mg EC Take 81 mg by 0 Active tablet mouth daily. lisinopril-hydrochlor Take 1 tablet by 90 tablet 3 07/17/2019 Active othiazide 20-25 mg mouth daily. per tablet fluticasone Use 1 Winslow in 16 g 3 01/22/2020 Ac tive propionate 50 each nostril 2 mcg/actuation nasal (two) times daily. sprayIndications: Medicare annual wellness visit, subsequent albuterol 90 Inhale 2 Puffs 8.5 g 11 01/22/2020 A ctive mcg/actuation every 6 (six) inhalerIndications: hours as needed SOB (shortness of for Shortness of breath) Breath. wxdnvfnf-qkrnqslfz-yd Put in 2 drops 10 mL 3 01/22/2020 Active drocortisone daily for ear 3.5-10,000-1 pain, can use in mg/mL-unit/mL-% otic both ears if suspIndications: Ear needed. pain, bilateral azithromycin 250 mg Take 1 tablet by 1 Package 0 04/27/2020 Active tabletIndications: mouth daily. Take Acute URI 500 mg day 1, then 250 mg days 2 to 5. benzonatate (TESSALON Take 1 capsule by 20 capsule 0 0 Active PERLES) 100 mg mouth 3 (three) capsuleIndications: times daily. Acute URI documented as of this encounter (statuses as of 04/27/2020) Active Problems No known active problemsdocumented as of this encounter (statuses as of 04/27/2020) Immunizations Name Administration Dates Next Due Td 04/26/2018 documented as of this encounter Social History Tobacco Use Types Packs/Day Years Used Date Former Smoker 50 Smokeless Tobacco: Former User Alcohol Use Drinks/Week oz/Week Comments No Sex Assigned at Date Recorded Not on file documented as of this encounter Last Filed Vital Signs Vital Sign Reading Time Taken Comments Blood Pressure 146/70 04/27/2020 9:53 AM CDT Pulse 71 04/27/2020 9:49 AM CDT Temperature 36.8 C (98.3 F) 04/27/2020 9:49 AM CDT Respiratory Rate 16 04/27/2020 9:49 AM CDT Oxygen Saturation 99% 04/27/2020 9:49 AM CDT Inhaled Oxygen Concentration - - Weight 90.7 kg (200 lb) 04/27/2020 9:49 AM CDT Height - - Body Mass Index 29.97 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 It's caused by a new (novel) coronavirus called SARS-CoV-2. There are many types of coronavirus. Coronaviruses are a very common cause of bronchitis. They may sometimes cause lung infection (pneumonia). Symptoms can range from mild to severe respiratory illness. These viruses are also found in some animals. COVID-19 was first found in people in [facility], in late 2019.COVID-19 is a rapidly-emerging infectious disease. This means thatscientists are actively researching it.There are information updates regularly. Public health officials are working to find the source. How the virus spreads is not yet fully understood, but it seems to spread and infect people fairly easily. Some people who have been infected in an area may be unsure how or where they became infected. The virus may be spread through droplets of fluid that a person coughs or sneezes into the air. It may be spread if you touch a surface with virus on it, such as a handle or object, and then touch your eyes, nose, or mouth. For the latest information, visit the CDC website at www.cdc.gov/coronavirus/2019-ncov. Or call 944-WTB-ILBW (948-353-3522). What are the symptoms of COVID-19? Some people have no symptoms or mild symptoms. Symptoms may appear 2 to 14 days after contact with the virus. Symptoms can include: Fever Coughing Trouble breathing What are possible complications from COVID-19? In many cases, this virus can cause infection (pneumonia) in both lungs. In some cases, this can cause . Certain people are at higher risk for complications. This includes older adults and people with serious chronic health conditions such as heart or lung disease or diabetes. How is COVID-19 diagnosed? Your healthcare provider will ask about your symptoms. He or she will also ask about your recent travel and contact with sick people. If your healthcare provider thinks you may have COVID-19, he or shewill work closely with your local health department on testing. Follow all instructions from your healthcare provider. COVID-19 is diagnosed by: Nose and throat swab. A cotton-tipped swab is wiped inside your nose or throat. This is done to check for viruses in your nasal mucus. Sputum culture. A small sample of mucus coughed from your lungs (sputum) is collected if you havea cough. It's checked for the virus. How is COVID-19 treated? There is currently no medicine to treat the virus. Treatment is done to help your body while it fights the virus. This is known as supportive care. Supportive care may include: Getting rest. This helps your body fight the illness. Staying hydrated. Drink 6 to 8 glasses of liquids every day. Good choices are water, sport drinks, soft drinks without caffeine, juices, tea, and soup. Taking pain medicine. These may include acetaminophen and ibuprofen. They are used to help ease pain and reduce fever. Follow your healthcare provider's instructions. For severe illness, you may need to stay in the hospital. Care during severe illness may include: IV (intravenous) fluids. These are given through a vein to help keep your body hydrated. Oxygen. Supplemental oxygen or ventilation with a breathing machine (ventilator) may be given. This is done so you get enough oxygen in your body. Are you at risk for COVID-19? You are at risk for infection if youve been to a place where people have been sick with this virus or if there are people with COVID-19 in your area. You are at risk if you: Recently traveled to an area with a COVID-19 outbreak Had contact with a sick person who recently traveled to an area with a COVID- 19 outbreak Had contact with a person who was diagnosed with or who may have COVID-19 How can COVID-19 be prevented? There is no vaccine yet. The best prevention is to not have contact with the virus. The CDC advises that people should not travel to areas where there are COVID-19 outbreaks right now for any reason that is not urgent. For the most current CDC travel advisories, visit the CDC website at www.cdc.gov/cor onavirus/2019-ncov/travelers. To help prevent spreading the infection, wash your hands often, or use an alcohol-based hand supervisor purification. The CDC advises that you should not wear a facemask if you are not sick. Prepare and protect yourself from COVID-19: Wash your hands often with soap and clean, running water for at least 20 seconds. If you don't have access to soap and water, use an alcohol-based hand supervisor purification often. Make sure it has at least 60% alcohol. Don't touch your eyes, nose, or mouth unless you have clean hands. As much as possible, don't touch "high-touch" public surfaces such as doorknobs. Don't shake hands. Clean home and work surfaces often with disinfectant. Cough or sneeze into a tissue, then throw the tissue into the trash. If you don't have tissues, cough or sneeze into the bend of your elbow. Stay informed about COVID-19 in your area. Follow local instructions about being in public. Be aware of events in your community that may be postponed or canceled such as school and sporting events.You may be advised not to attend public gatherings. You will be advised to stay about 6 feet from others as much as possible. This is called "social distancing." The CDC advises wearing a cloth face mask in public. During a public health emergency, medical face masks may be reserved for healthcare workers. You may need to make a cloth face mask of your own. You can do this using a bandana, T- shirt, or other cloth. The [facility] hasinstructions on how to make a mask. Check your home supplies. Consider keeping a 2-week supply of medicines, food, and other needed household items. Make a plan for childcare, work, and ways to stay in touch with others. Know who will help you ifyou get sick. Don't be around people who are sick. There is no evidence right now that animals spread SARS-CoV-2. But it's always a good idea to wash your hands after touching any animals. Don't touch animals that may be sick. Dont share eating or drinking utensils with sick people. Dont kiss someone who is sick. If you were in an area with COVID-19 in the last 14 days: Call your healthcare provider and follow all instructions. Your activities and where you go may be restricted for up to 2 weeks. You may be directed to stay home, or "self-quarantine." Take your temperature every morning and evening for at least 14 days. This is to check for fever.Keep a record of the readings. Watch for symptoms of the virus. Call your provider if you have symptoms. Call your provider first before going to any clinic or hospital. Stay home if you are sick for any reason. If you are sick with COVID-19 symptoms: Stay home. Call your healthcare provider and tell them you have symptoms of COVID-19. Do this before going to any hospital or clinic. Follow your provider's instructions. You may be advised to isolate yourself at home. This is called self-isolation . Dont panic. Keep in mind that other illnesses can cause similar symptoms. Stay away from work, school, and public places. Limit physical contact with family members. Limitvisitors. Don't kiss anyone or share eating or drinking utensils. Clean surfaces you touch with disinfectant. This is to help prevent the virus from spreading. Cough or sneeze into a tissue, then throw away the tissue in the trash. If you don't have tissues, cough or sneeze into the bend of your elbow. Wear a facemask only if you have symptoms If you need to go in to a hospital or clinic, expect that the healthcare staff will wear protective equipment such as masks, gowns, gloves, and eye protection. You may be put in a separate room. This is to prevent the possible virus from spreading. Tell the healthcare staff about recent travel. This includes local travel on public transport. Staff may need to find other people you have been in contact with. Follow all instructions the healthcare staff give you. If you have been diagnosed with COVID-19 Stay home. Dont leave your home unless you need to get medical care. Don't go to work, school,or public areas. Don't use public transportation or taxis. Follow all instructions from your healthcare provider. Call your healthcare providers office before going. They can prepare and give you instructions. This will help prevent the virus from spreading. If you need to go to a hospital or clinic, expect that the healthcare staff will wear protective equipment such as masks, gowns, gloves, and eye protection. You may be put in a separate room. This is to prevent the possible virus from spreading. Wear a face mask. This is to protect other people from your germs. If you are not able to wear a mask, your caregivers should. Stay away from other people in your home. Limit contact with pets and animals. Although there are no reports of pets getting sick with COVID-19, consider limiting contact with pets until more is known. Dont share household items or food. Cover your face with a tissue when you cough or sneeze. Throw the tissue away. Then wash your hands. Wash your hands often. If you are caring for a sick person: Follow all instructions from healthcare staff. Wash your hands often. Wear protective clothing as advised. Make sure the sick person wears a mask. If they can't wear a mask, don't stay in the same room with the person. If you must be in the same room, wear a facemask. Keep track of the sick persons symptoms. Clean surfaces, fabrics, and laundry thoroughly. Keep other people and pets away from the sick person. When to call your healthcare provider Call your healthcare provider right away: If youve recently traveled or have been in an area with COVID-19 and have symptoms If you have been diagnosed with COVID-19 and your symptoms are worse Date last modified: 10/26/2019 [employer] last reviewed this educational content on 07/22/201919992898-0472 [employer]. [address] [place] [id number]. All rights reserved. This information is not intended as a substitute for professional medical care. Always follow your healthcare professional's instructions. documented in this encounter Progress Notes Verónica Lima PA - 04/27/2020 10:00 AM CDT Cc: Chief Complaint Patient presents with NASAL DRAINAGE Cough x 1 wk, pt denies fever, SOB, NVD Headache Suzanna Loving is a 85 year old female. Patient presents with URI symptoms that began 1 weeks ago. Travel: NO. COVID19 exposure? NO. Sick Contacts? NO URI Presenting symptoms: congestion, cough (occasional, nonproductive), ear pain ("a little tiny bit") and rhinorrhea Presenting symptoms: no facial pain, no fatigue, no fever and no sore throat Duration: 1 week Timing: Intermittent Progression: Unchanged Chronicity: New Worsened by: Nothing Ineffective treatments: None tried Associated symptoms: headaches (comes and goes) and sneezing (always) Associated symptoms: no arthralgias, no myalgias, no neck pain, no sinus pain, no swollen glands andno wheezing Risk factors: chronic cardiac disease and chronic respiratory disease Risk factors: not elderly, no chronic kidney disease, no diabetes mellitus, no immunosuppression, norecent illness, no recent travel and no sick contacts Allergies Suzanna is allergic to carvedilol and lipitor [atorvastatin]. Medications Outpatient Medications Prior to Visit Medication Sig Dispense Refill fluticasone propionate 50 mcg/actuation nasal spray Use 1 Winslow in each nostril 2 (two) times daily. 16 g 3 lisinopril-hydrochlorothiazide 20-25 mg per tablet Take 1 tablet by mouth daily. 90 tablet 3 aspirin 81 mg EC tablet Take 81 mg by mouth daily. albuterol 90 mcg/actuation inhaler Inhale 2 Puffs every 6 (six) hours as needed for Shortness ofBreath. 8.5 g 11 wcavgoly-kwrsozdnv-zglvytnzwurbli 3.5-10,000-1 mg/mL-unit/mL-% otic susp Put in 2 drops daily for ear pain, can use in both ears if needed. 10 mL 3 No facility-administered medications prior to visit. Histories Past Medical History: Diagnosis Date CAD (coronary artery disease) follows with Dr. Molina COPD (chronic obstructive pulmonary disease) Mild History of breast cancer lumpectomy, no chemo or radiation treatment History of hyperlipidemia Hypertension Sinusitis Past Surgical History: Procedure Laterality Date APPENDECTOMY COLONOSCOPY N/A 11/13/2017 Surgeon: Denia Cortez [place]; [place] [facility] [place] SIMPLE MASTECTOMY Right Social History Socioeconomic History Marital status: Single Spouse name: Not on file Number of children: Not on file Years of education: Not on file Highest education level: Not on file Occupational History Occupation: retired, high school history teacher, elementary Social Needs Financial resource strain: Not on file Food insecurity Worry: Not on file Inability: Not on file Transportation needs Medical: Not on file Non-medical: Not on file Tobacco Use Smoking status: Former Smoker Years: 50.00 Smokeless tobacco: Former User Substance and Sexual Activity Alcohol use: No Drug use: No Sexual activity: Not on file Lifestyle Physical activity Days per week: Not on file Minutes per session: Not on file Stress: Not on file Relationships Social connections Talks on phone: Not on file Gets together: Not on file Attends judaism service: Not on file Active member of club or organization: Not on file Attends meetings of clubs or organizations: Not on file Relationship status: Not on file Intimate partner violence Fear of current or ex partner: Not on file Emotionally abused: Not on file Physically abused: Not on file Forced sexual activity: Not on file Other Topics Concern Not on file Social History Narrative Lives at home with her son, . Daughter lives close by. 07/17/2019 Family History Problem Relation Age of Onset Alzheimers dementia Mother Review of Systems Constitutional: Negative for activity change, appetite change, chills, diaphoresis, fatigue and fever. HENT: Positive for congestion, ear pain ("a little tiny bit"), rhinorrhea and sneezing (always). Negative for ear discharge, facial swelling, postnasal drip, sinus pressure, sinus pain, sore throat, trouble swallowing and voice change. Eyes: Negative for pain, discharge, redness and itching. Respiratory: Positive for cough (occasional, nonproductive). Negative for chest tightness, shortnessof breath and wheezing. Cardiovascular: Negative for chest pain, palpitations and leg swelling. Gastrointestinal: Negative for abdominal pain, constipation, diarrhea, nausea and vomiting. Musculoskeletal: Negative for arthralgias, back pain, gait problem, joint swelling, myalgias, neck pain and neck stiffness. Skin: Negative for color change and rash. Neurological: Positive for headaches (comes and goes). Negative for dizziness, syncope, weakness andlight-headedness. Psychiatric/Behavioral: Negative for confusion. Vital Signs BP (!) 146/70 | Pulse 71 | Temp 36.8 C (98.3 F) (Oral) | Resp 16 | Wt 200 lb (90.7 kg) | SpO2 99% | BMI 29.97 kg/m Vitals: 04/27/20 0949 04/27/20 0953 BP: (!) 166/72 (!) 146/70 Pulse: 71 Resp: 16 Temp: 36.8 C (98.3 F) TempSrc: Oral SpO2: 99% Weight: 200 lb (90.7 kg) Physical Exam Vitals signs and nursing note reviewed. Constitutional: General: She is not in acute distress. Appearance: She is well-developed. She is not ill-appearing, toxic-appearing or diaphoretic. HENT: Head: Normocephalic and atraumatic. Right Ear: Tympanic membrane, ear canal and external ear normal. Left Ear: Tympanic membrane, ear canal and external ear normal. Nose: Nose normal. Right Sinus: No maxillary sinus tenderness or frontal sinus tenderness. Left Sinus: No maxillary sinus tenderness or frontal sinus tenderness. Mouth/Throat: Mouth: Mucous membranes are moist. Pharynx: Oropharynx is clear. No oropharyngeal exudate or posterior oropharyngeal erythema. Comments: + post nasal drip Eyes: General: Right eye: No discharge. Left eye: No discharge. Conjunctiva/sclera: Conjunctivae normal. Neck: Musculoskeletal: Normal range of motion. Cardiovascular: Rate and Rhythm: Normal rate and regular rhythm. Heart sounds: Normal heart sounds. Pulmonary: Effort: Pulmonary effort is normal. No respiratory distress. Breath sounds: Normal breath sounds. No stridor. No wheezing, rhonchi or rales. Abdominal: General: Bowel sounds are normal. There is no distension. Palpations: Abdomen is soft. Tenderness: There is no abdominal tenderness. There is no guarding. Musculoskeletal: Normal range of motion. Lymphadenopathy: Cervical: Cervical adenopathy present. Skin: General: Skin is warm and dry. Findings: No rash. Neurological: Mental Status: She is alert and oriented to person, place, and time. Psychiatric: Behavior: Behavior normal. Assessment/Plan Acute URI (primary encounter diagnosis) Plan: COVID-19 (PCR MOLECULAR TESTING), COVID-19 (PCR MOLECULAR TESTING), azithromycin 250 mg tablet, benzonatate (TESSALON PERLES) 100 mg capsule Afebrile, well appearing, non-toxic, NAD. HR < 100, lungs CTAB, O2 sat 99%. COVID-19 test ordered. Likely 2/2 URI. Given duration of symptoms without improvement, age and comorbidities will go ahead and cover with abx. Educated on the following at home care: -Take zpack- full course as directed with food -Take tessalon prn cough as directed. -Increase water intake -Take over the counter vitamin C/multivitamin with vitamin C -Take Tylenol as needed, avoid nsaids -REST -Wash hands often -Cover mouth when coughing -Wear mask with in the same room/car as others -Gargle with warm salt water as needed -Drink warm liquids as needed. -Throat lozenges as needed -Quarantine until your COVID results are back -Stay in your own bedroom and use a separate bathroom -Keep at least 6 feet from you and others -Avoid sharing personal household items, dishes, glasses, cups, towels -Clean high traffic/touch areas daily. These include but not limited to: doorknobs, refrigerator/cabinet handles, phones, keyboards, tablets, light switches. -Monitor your symptoms. Take your temperature 2 times daily. -Follow-up with PCP as needed, if no improvement. -Monitor your symptoms. Go to the ED if worsening symptoms: chest pain, difficulty breathing, coughing up blood, weakness, dizziness, passing out, AMS. -[facility] handout provided Essential hypertension Plan: BP 146/70 at recheck. Managed by Dr. Wells (PCP). No cp, palpitations, sob, [place], dizziness, syncope. Encouraged to monitor BP and follow-up with PCP Watch blood pressure: check 2-3 times daily and log. Look for high numbers >= 130/80. Low salt Low caffeine diet Low alcohol Avoid tobacco products. Avoid decongestants Heart Healthy Exercise: total of 150 minutes of cardio: walking,swimming, hiking, biking every week. Heart healthy diet: low fat/carb/sugar diet; increase lean meat-chicken, turkey, fish; increase vegetables/fruits ( still be careful because elevated sugar level) Er--> chest pain, dizziness, passing out, fluttering of heart, shortness of breath. Pt ed/precautions given in detail regarding conditions/medicaitons. Er precautions given. Pt reportsunderstanding and agrees. rtc if s/s worsen or do not improve ; Plan of care, desired health behaviors, goals, Ddx, & any prescribed or OTC medications discussed with patient. Education resources & self management tools provided and reviewed with AVS. Patient/guardian/family verbalized understanding & agrees to plan of care. Barriers to care: NONE Ability to manage care: Good This visit did not involve counseling and coordination that comprised more than 50% of the visit time. Rhonda Montelongo RN - 04/27/2020 10:00 AM CDTPatient educated on plan of care for visit, swabbing technique, risks and benefits of test and length of time to receive results. Verbal consent obtained to perform test. CDC Fact Sheet for Patients nCoV Diagnostic Panel dated 10/04/2019 provided. documented in this encounter Plan of Treatment Date Type Specialty Care Team Description 07/25/2020 Office Visit Internal Medicine Laverne Wells MD [address] [id number] 15 Name Type Priority Associated Diagnoses Order S chedule COVID-19 (PCR MOLECULAR LAB Routine Exposure to Expe cted: 04/27/2020, TESTING) SARS-associated Expires: 01/2021 coronavirus Acute URI Health Maintenance Due Date Last Done Comments Medicare Wellness Visit 2001 INFLUENZA VACCINE (#1) 2020 Depression Screening 07/17/2020 07/17/2019 PNEUMOCOCCAL VACCINES 65+ (1 of 1 07/17/2020 Postponed from 2001 - PPSV23) (Refused) Zoster Recombinant Vaccine 07/17/2020 Postp oned from 1986 (SHINGRIX) (1 of 2) (Refused) Osteoporosis Screening 05/27/2024 05/27/2014 DTaP,Tdap,and Td Vaccines (1 - 08/10/2027 04/26/2018 P ostponed from 1955 Tdap) (Alternative Krystian delines) documented as of this encounter Results Not on filedocumented in this encounter Visit Diagnoses Diagnosis Acute URI - Primary Acute upper respiratory infections of un specified site Exposure to SARS-associated coronavirus Essential hypertension Unspecified essential hypertension documented in this encounter Additional Health Concerns Infection Onset Date Last Indicated Resolved Time COVID-19 Rule Out 04/27/2020 04/27/2020 documented as of this encounter Insurance Payer Benefit Plan Subscriber ID Effective Phone Address Typ e / Group Dates AETNA - AETNA [id number] 2018-[place] P O BOX Medic are Adv MANAGED MEDICARE ADV nt [id number] [place] [address] documented as of this encounter
--- OUTSIDE RECORDS SUMMARY | 2020-05-05 19:20 | XMS REPORT | Summary of Care ---
:1935 Author Organization [facility] Address [address] [place] [address] Care Team Providers Name Role Phone Sasha Wells MD Primary Care Provider Selbst Unavailable MD Tracy Unavailable Reason for Visit Reason Comments Follow-up Encounter Details Date Type Department Care Team Description 01/22/2020 Office Visit [facility] Pediatric Kyle Wells hypertension, benign (Primary Dx); and Adult Primary Delia Curry Medicare annual wellness visit, [facility] [place]; Care- [address] Ear pain, bilateral; [address] [place] [address] [address] SOB (shortness of breath); Drive, [address] [place] [address] Routine adult health maintenance [place], [place] [phone] [address] [phone] Allergies Active Allergy Reactions Severity Noted Date [...] mg per daily. 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 Dispense: 16 g; Refill: 3 -ordered annual labs for next year. 3. Ear pain, bilateral Chronic. Well-controlled with neomycin drops. - gbsehdrp-mkcdtgyzd-bencxangexgegl 3.5-10,000-1 mg/mL-unit/mL-% otic susp; Put in 2 [...] Office Visit Internal Medicine Laverne Wells MD [address] [place] [address] [phone] Name Type Priority Associated Diagnoses Order S chedule CBC WITH DIFF LAB Routine Routine adult health 1 Occu rrences starting maintenance 02/07/2020 unti l 02/06/2022 COMP. METABOLIC PANEL LAB Routine Routine adult healt h 1 Occurrences starting (91173) maintenance 02/07/2020 unti l 02/06/2022 THYROID STIMULATING LAB Routine Routine adult health 1 Occurrences starting HORMONE maintenance 02/07/2020 unti l 02/06/2022 LIPID PANEL (50010)(TOTAL LAB Routine Routine adult h ealth 1 [...] e / Group Dates AETNA - AETNA [id number] 2018-Pre[place] P O BOX Medic are Adv MANAGED MEDICARE ADV nt [id number] [place] [address] documented as of this encounter
--- OUTSIDE RECORDS SUMMARY | 2020-05-05 19:21 | XMS REPORT | Summary of Care ---
:1935 Author Organization [facility] Address [address] [place] [address] Care Team Providers Name Role Phone Sasha Wells MD Primary Care Provider Selbst Unavailable MD Tracy Unavailable Reason for Visit Reason Comments Results Encounter Details Date Type Department Care Team Description 04/29/[address] [facility] Family Medicine Rohan Wells, Results - Palomo SEVERINO [address] [facility] [address] [place] [address] [place] [address] [address] [address] [place], [place] [address] [phone] Allergies Active Allergy Reactions Severity Noted Date Comments Carvedilol Other - See comments 10/08/2018 Tightne ss in chest Atorvastatin Other - See comments 10/08/2018 cramps documented as of this encounter (statuses as of 04/29/2020) Medications Medication Sig Dispensed Refills Start Date End Date Status aspirin 81 mg EC Take 81 mg by 0 Active tablet mouth daily. fluticasone Use 1 [place] in 16 g 3 01/22/2020 Ac tive propionate 50 each nostril 2 mcg/actuation nasal (two) times daily. sprayIndications: Medicare annual wellness visit, subsequent albuterol 90 Inhale 2 Puffs 8.5 g 11 01/22/2020 A ctive mcg/actuation every 6 (six) inhalerIndications: hours as needed SOB (shortness of for Shortness of breath) Breath. lqhjsbmz-svjscvmsp-og Put in 2 drops 10 mL 3 [...] 3 (three) capsuleIndications: times daily. Acute URI lisinopriL-hydrochlor Take 1 tablet by 90 tablet 3 04/28/2020 Active othiazide 20-25 mg mouth daily. per tabletIndications: Essential hypertension, benign documented as of this encounter (statuses as of 04/29/2020) Active Problems No known active problemsdocumented as of this encounter (statuses as of 04/29/2020) Immunizations Name Administration Dates Next Due Td 04/26/2018 documented as of this encounter Social History Tobacco Use Types Packs/Day Years Used Date Former Smoker 50 Smokeless Tobacco: Former User Alcohol Use Drinks/Week oz/Week Comments No Sex Assigned at Date Recorded Not on file documented as of this encounter Last Filed Vital Signs Not on filedocumented in this encounter Miscellaneous Notes Telephone Encounter - Wojciech Garza MA - 04/29/2020 1:50 PM CDTCalled and spoke with patient. Pt was advised of negative Covid 19 result. Patient verbalized understanding of results. WOJCIECH GARZA MA 04/29/2020 1:51 PM Telephone Encounter - Merissa Payan - 04/29/2020 11:41 AM CDTPt grandson Sadi) calling back in regards to below encounter. elephone Encounter - Thelma Mays - 04/29/2020 11:02 AM CDTPatient grandchild is calling and is requesting covid19 test results, please call back at [phone]. documented in this encounter Plan of Treatment Date Type Specialty Care Team Description 07/25/2020 Office Visit Internal Medicine Laverne Wells MD [address] [facility] [address] [place], [place] [address] [phone] Health Maintenance Due Date Last Done Comments [...] Results Not on filedocumented in this encounter Insurance Payer Benefit Plan Subscriber ID Effective Phone Address Typ e / Group Dates AETNA - AETNA [id number] 2018-Prese P [address] BOX Medic are Adv MANAGED MEDICARE ADV nt [id number] [place] [address] documented as of this encounter
--- OUTSIDE RECORDS SUMMARY | 2020-05-05 19:21 | XMS REPORT | Summary of Care ---
:1935 Author Organization [facility] Address [address] [place] [address] Care Team Providers Name Role Phone Sasha Wells MD Primary Care Provider Selbst Unavailable MD Tracy Unavailable Reason for Visit Reason Comments Refill Request Encounter Details Date Type Department Care Team Description 04/28/2020 Refill [facility] Pediatric and Usha Wells, Refill Request Adult Primary Care- [place] [address] [place] [address] [address] [address] [address] [place] [address] [place] [address] [phone] Allergies Active Allergy Reactions Severity Noted Date Comments Carvedilol Other - See comments 10/08/2018 Tightne ss in chest Atorvastatin Other - See comments 10/08/2018 cramps documented as of this encounter (statuses as of 04/28/2020) Medications Medication Sig Dispensed Refills Start Date End Date Status aspirin 81 mg EC Take 81 mg by 0 Active tablet mouth daily. fluticasone Use 1 [place] in 16 g 3 01/22/2020 Ac tive [...] otic if needed. suspIndications: Ear pain, bilateral azithromycin 250 Take 1 tablet 1 Package 0 04/27/2020 Active mg by mouth tabletIndications daily. Take : Acute URI 500 mg day 1, then 250 mg days 2 to 5. benzonatate Take 1 capsule 20 capsule 0 04/27/2020 A ctive (TESSALON PERLES) by mouth 3 100 mg (three) times capsuleIndication daily. s: Acute URI lisinopriL-hydroc Take 1 tablet 90 tablet 3 04/28/2020 Active hlorothiazide by mouth 20-25 mg per daily. tabletIndications : Essential hypertension, benign lisinopril-hydroc Take 1 tablet 90 tablet 3 07/17/2019 02 Discontinued hlorothiazide by mouth 0 (Reord er) 20-25 mg per daily. tablet documented as of this encounter (statuses as of 04/28/2020) Active Problems No known active problemsdocumented as of this encounter (statuses as of 04/28/2020) Immunizations Name Administration Dates Next Due Td 04/26/2018 documented as of this encounter Social History Tobacco Use Types Packs/Day Years Used Date Former Smoker 50 Smokeless Tobacco: Former User Alcohol Use Drinks/Week oz/Week Comments No Sex Assigned at Date Recorded Not on file documented as of this encounter Last Filed Vital Signs Not on filedocumented in this encounter Miscellaneous Notes Telephone Encounter - Nilam Wells MD - 04/28/2020 1:52 PM CDT Patient needed refill, received info from provider at urgent care. Refilled. documented in this encounter Plan of Treatment Date Type Specialty Care Team Description 07/25/2020 Office Visit Internal Medicine Laverne Wells MD [address] [place] [address] [phone] Health Maintenance Due Date Last Done Comments [...] Diagnoses Diagnosis Essential hypertension, benign - Primary documented in this encounter Additional Health Concerns Infection Onset Date Last Indicated Resolved Time COVID-19 Rule Out 04/27/2020 04/27/2020 documented as of this encounter Insurance Payer Benefit Plan Subscriber ID Effective Phone Address Typ e / Group Dates AETNA - AETNA [id number] 2018-James P O BOX Medic are Adv MANAGED MEDICARE ADV nt [id number] [place] [address] documented as of this encounter
--- NOTE | 2020-05-05 20:56 | RAD REPORT ---
EXAM DESCRIPTION: CT - Soft Tissue Neck W/Contr - 05/05/2020 8:44 pm CLINICAL HISTORY: left neck swelling COMPARISON: Soft Tissue Neck W/Contr dated 07/06/2018 TECHNIQUE: During dynamic enhancement using 100 milliliters nonionic IV contrast, axial 5 millimeter thick images of the neck were obtained. All CT scans are performed using dose optimization technique as appropriate and may include automated exposure control or mA/KV adjustment according to patient size. FINDINGS: Intracranial portion the examination is unremarkable. No globe or orbital content abnormal ity. Mastoid air cells and paranasal sinuses are clear. There is right deviation of the nasal septum. No acute finding of the mandible. Condyles are normally positioned. No fracture or acute bone process identifiable. No pharyngeal mucosal mass or asymmetry. No tonsillar or tongue base abnormality identifiable. Paraph aryngeal fat is normal. Soft palate, epiglottis and laryngeal structures also unremarkable. No abnorm ality seen along the floor the mouth. The parotid and thyroid gland tissues are unremarkable. The left submandibular gland is slightly larger than the right and shows a slightly increased enhance ment pattern relative to the right. No calcification of the gland or duct identifiable. Findings coul d represent a mild sialadenitis and can be correlated with clinical presentation. A few small nonspecific bilateral cervical lymph nodes are present. No pathologic lymphadenopathy. Advanced facet joint degenerative change in the upper cervical spine. No acute bone findings seen. IMPRESSION: Left submandibular gland is enlarged relative to the right and shows slightly greater en hancement. There are no calcifications of the gland or stone. Findings are suspicious for a mild left submandibular sialoadenitis. Correlation is needed with clini [place] findings. No abnormal lymphadenopathy. No other mass or suspicious finding in the left-side neck soft tissues.
--- NOTE | 2020-05-05 21:19 | EDPHYS ---
Physician Documentation [facility] Name: Suzanna Loving Age: 85 yrs Sex: Female : 1935 Arrival Date: 05/05/2020 Time: 19:19 Bed 2 Private MD: ED Physician Mohan Young HPI: 05/05 19:57 This 85 yrs old Female presents to ER via Ambulatory with complaints of Cyst jmm On Neck. 19:57 The patient or guardian complains of swelling. Onset: The symptoms/episode jmm began/occurred gradually, 1 month(s) ago. Associated signs and symptoms: Pertinent negatives: fever. This is an 85 year old female with a history of bradycardia, copd, htn that presents to the ED with complaints of left sided neck swelling beginning approx 1 month ago. Denies fever, vomiting, difficulty breathing. . Historical: - Allergies: 19:37 Pyridium; rv - Home Meds: 19:37 lisinopril 5 mg Oral tab 1 tab in the morning, 1 tab at bedtime. [Active]; rv hydrochlorothiazide 25 mg Oral tab [Active]; - PMHx: 19:37 BRADYCARDIA; COPD; Hypertension; rv - PSHx: 19:37 Hysterectomy; Appendectomy; rv - Immunization history:: Adult Immunizations up to date. - Social history:: Smoking status: Patient/guardian denies using tobacco, the patient reports quitting approximately 5 years ago. ROS: 19:57 Constitutional: Negative for fever, chills, and weight loss. jmm 19:57 Neck: Positive for swelling. 19:57 All other systems are negative. Exam: 19:57 Constitutional: This is a well developed, well nourished patient who is awake, alert, jmm and in no acute distress. Head/Face: atraumatic. Eyes: EOMI, no conjunctival erythema appreciated ENT: Moist Mucus Membranes 19:57 Chest/axilla: Normal chest wall appearance and motion. Cardiovascular: Regular rate and rhythm. No edema appreciated Respiratory: Normal respirations, no respiratory distress appreciated Abdomen/GI: Non distended, soft Back: Normal ROM Skin: General appearance color normal MS/ Extremity: Moves all extremities, no obvious deformities appreciated, no edema noted to the lower extremities Neuro: Awake and alert, normal gait Psych: Behavior is normal, Mood is normal, Patient is cooperative and pleasant 19:57 Neck: External neck: swelling, that is moderate, of the left submandibular area. Vital Signs: 19:32 BP 128 / 81; Pulse 78; Resp 17; Temp 98.2; Pulse Ox 100% ; Weight 90.72 kg; Height 5 rv ft. 9 in. (175.26 cm); Pain 0/10; 19:32 Body Mass Index 29.53 (90.72 kg, 175.26 cm) rv MDM: 19:44 Patient medically screened. [facility] 21:17 Data reviewed: vital signs, nurses notes. Counseling: I had a detailed discussion with dwain the patient and/or guardian regarding: the historical points, exam findings, and any diagnostic results supporting the discharge/admit diagnosis, radiology results, the need for outpatient follow up, to return to the emergency department if symptoms worsen or persist or if there are any questions or concerns that arise at home. ED course: Patient advised to follow up with ent for further evaluation. Patient is otherwise given strict return precautions. Patient understood and agrees with the plan of care. . 05/05 19:56 Order name: CT Soft Tissue Neck W/contr; Complete Time: 21:11 [facility] 05/05 19:56 Order name: Saline Lock; Complete Time: 21:31 [facility] Administered Medications: No medications were administered Disposition: 05/05/20 21:18 Discharged to Home. Impression: Sialoadenitis, unspecified. - Condition is Stable. - Discharge Instructions: Salivary Stone. - Prescriptions for Augmentin 875- 125 mg Oral Tablet - take 1 tablet by ORAL route every 12 hours for 10 days; 20 tablet. - Medication Reconciliation Form, Thank You Letter, Antibiotic Education, Prescription Opioid Use form. - Follow up: Private Physician; When: 2 - 3 days; Reason: Recheck today's complaints, Continuance of care, Re-evaluation by your physician. Addendum: 05/07/2020 13:07 Co-signature as Attending Physician, Mohan Young MD I agree with the assessment and c ricks plan of care. Signatures: Dispatcher [employer] Mohan Willingham MD MD cha Mickail, Joel, PA PA Carlos Manuel Corbin, HOLLIE RN rv Corrections: (The following items were deleted from the chart) 05/05 19:58 19:57 CREATININE, SERUM+C.LAB.BRZ ordered. EDNJ EDMS 21:31 21:18 05/05/2020 21:18 Discharged to Home. Impression: Sialoadenitis, unspecified. rv Condition is Stable. Forms are Medication Reconciliation Form, Thank You Letter, Antibiotic Education, Prescription Opioid Use. Follow up: Private Physician; When: 2 - 3 days; Reason: Recheck today's complaints, Continuance of care, Re-evaluation by your physician. johny
--- NOTE | 2020-05-05 21:19 | ER ---
Nurse's Notes [facility] Name: Suzanna Loving Age: 85 yrs Sex: Female : 1935 Arrival Date: 05/05/2020 Time: 19:19 Bed 2 Private MD: Diagnosis: Sialoadenitis, unspecified Presentation: 05/05 19:32 Chief complaint: Patient states: NOTICED CYST ON THE LEFT SIDE OF THE CHIN, DENIES rv TENDERNESS/PAIN. NO PROBLEM WITH SWALLOWING AND BREATHING. PATIENT HAVE BEEN TO THE URGENT CARE AND PRESCRIBED WITH ERYTHROMYCIN. PATIENT AND FAMILY IS CONCERNED BECAUSE ITS BEEN THERE FOR A MONTH AND THEY WERE NEVER TOLD WHAT IT WAS. Coronavirus screen: Client denies travel out of the [place] in the last 14 days. Ebola Screen: No symptoms or risks identified at this time. Initial Sepsis Screen: Does the patient meet any 2 criteria? No. Patient's initial sepsis screen is negative. Does the patient have a suspected source of infection? No. Patient's initial sepsis screen is negative. Risk Assessment: Do you want to hurt yourself or someone else? Patient reports no desire to harm self or others. Onset of symptoms is unknown. 19:32 Method Of Arrival: Ambulatory rv 19:32 Acuity: ARTHUR 3 bb Triage Assessment: 19:37 General: Appears comfortable, Behavior is calm, cooperative. Pain: Denies pain. EENT: rv Throat is clear. Neuro: Level of Consciousness is awake, alert, obeys commands, Oriented to person, place, time, situation. Cardiovascular: Patient's skin is warm and dry. Respiratory: Airway is patent Respiratory effort is even, unlabored, Breath sounds are clear bilaterally. Derm: Skin is intact. 19:38 Derm: Musculoskeletal:. rv Historical: - Allergies: 19:37 Pyridium; rv - Home Meds: 19:37 lisinopril 5 mg Oral tab 1 tab in the morning, 1 tab at bedtime. [Active]; rv hydrochlorothiazide 25 mg Oral tab [Active]; - PMHx: 19:37 BRADYCARDIA; COPD; Hypertension; rv - PSHx: 19:37 Hysterectomy; Appendectomy; rv - Immunization history:: Adult Immunizations up to date. - Social history:: Smoking status: Patient/guardian denies using tobacco, the patient reports quitting approximately 5 years ago. Screenin:38 Abuse screen: Denies threats or abuse. Denies injuries from another. Nutritional rv screening: No deficits noted. Tuberculosis screening: No symptoms or risk factors identified. Fall Risk Fall in past 12 months (25 points). Secondary diagnosis (15 points) impaired mobility, No IV (0 pts). Ambulatory Aid- None/Bed Rest/Nurse Assist (0 pts). Gait- Impaired (20 pts.). Mental Status- Oriented to own ability (0 pts). Total Arevalo Fall Scale indicates Low Risk Score (25-44 pts). Fall prevention measures have been instituted. Side Rails Up X 2 Frequent Obs/Assesments occuring Family Present and informed to notify staff if they need to leave bedside As available Patient and Family Educated on Fall Prevention Program and strategies. Vital Signs: 19:32 BP 128 / 81; Pulse 78; Resp 17; Temp 98.2; Pulse Ox 100% ; Weight 90.72 kg; Height 5 rv ft. 9 in. (175.26 cm); Pain 0/10; 19:32 Body Mass Index 29.53 (90.72 kg, 175.26 cm) rv ED Course: 19:19 Patient arrived in ED. cl3 19:21 Carlos Manuel Chappell, HOLLIE is Primary Nurse. rv 19:35 Triage completed. rv 19:36 Godwin Sylvester PA is PHCP. jmm 19:36 Mohan Young MD is Attending Physician. jmm 19:37 Arm band placed on left wrist. Patient placed in the treatment room, on a stretcher, rv Patient notified of wait time. 19:38 Patient has correct armband on for positive identification. Placed in gown. Bed in low rv position. Call light in reach. Pulse ox on. NIBP on. 20:22 Inserted saline lock: 20 gauge in left antecubital area, using aseptic technique. mw2 20:45 CT Soft Tissue Neck W/contr In Process Unspecified. EDMS 21:30 No provider procedures requiring assistance completed. IV discontinued, intact, rv bleeding controlled, No redness/swelling at site. Pressure dressing applied. Administered Medications: No medications were administered Outcome: 21:18 Discharge ordered by . jmm 21:30 Discharged to home via wheelchair, with family. rv 21:30 Condition: good 21:30 Discharge instructions given to patient, Instructed on discharge instructions, follow up and referral plans. medication usage, Demonstrated understanding of instructions, follow-up care, medications, Prescriptions given X 1. 21:31 Patient left the ED. rv Signatures: Dispatcher [employer] EDMS Godwin Sylvester PA PA jmm Ballard, Brenda, RN RN bb Russell Lema mw2 Carlos Manuel Chappell RN RN rv Naresh Nick cl3 Corrections: (The following items were deleted from the chart) 20:25 19:32 Acuity: ARTHUR 4 rv ike
[2020-05-05 22:11] VITALS: BP 128/81; TEMP 98.2; O2SAT 100
== END 2020-05-05 21:31 | disposition home or self-care (01) ==
LOC: ER 19:18
DX: K11.20 Sialoadenitis, unspecified (principal); I10 Essential (primary) hypertension; J44.9 Chronic obstructive pulmonary disease, unspecified; Z88.8 Allergy status to other drugs, medicaments and biological substances
CPT/HCPCS: 82565; 70491; 99284; Q9967

== ENCOUNTER 2021-09-17 12:28 | Emergency (ER) | payer OTHER ==
--- OUTSIDE RECORDS SUMMARY | 2021-09-17 12:33 | XMS REPORT | Continuity of Care Document ---
:1935 Author Organization [facility] t Address [address] [place] [address] Care Team Providers Name Role Phone RUSSELL, A Primary Care Physician Unavailable Russell SEVERINO, A Attending Clinician Sasha WELLS Attending Clinician Unavailable Provider, Urgent Care Attending Clinician Unavailable Payers Payer Name Policy Type Policy Number Effective Date Expiration Date S ource Problems Condition Condition Condition Status Onset Resolution Last Treating Co mments Source Name Details Category Date Date Treatment Clinician Date Atrial Atrial Disease Active 2020-07 Univers fibrillati fibrillati 2-26 it y of on, on, 00:00: [place] unspecifie unspecifie 00 Me dical d type d type Branch Bilateral Bilateral Disease Active Uni vers edema of edema of 2-04 ity of lower lower 00:00: [place] extremity extremity 00 [place] Branch Essential Essential Disease Active 2019-07 Uni vers hypertensi hypertensi 1-04 [place], benign [place] Allergies, Adverse Reactions, Alerts Allergy Allergy Status Severity Reaction(s) Onset Inactive Treating Comm ents Source Name Type Date Date Clinician Elsa Upton Active Other - See Tight[place] s Univers ol ty to comments 3-20 in chest ity of adverse 00:00: [place] reaction 00 Medical s Branch Atorvast Propensi Active Other - See cramps U nivers atin ty to comments 3-20 ity of adverse 00:00: [place] reaction 00 Medical s Branch CARVEDIL DRUG Active Other-Cmnt Univ ers OL INGREDI 3-20 ity of 00:00: Medical Branch ATORVAST DRUG Active Other-Cmnt [facility] ers ATIN INGREDI 3-20 ity of 00:00: 00 Medical Branch Social History Social Habit Start Date Stop Date Quantity Comments Source Exposure to Not sure [facility] SARS-CoV-2 [facility] (event) Branch Alcohol intake 2021-01-06 2021-01-06 Current University of 00:00:00 00:00:00 non-drinker of [facility] alcohol Lead (finding) Tobacco use and 2018-09-12 2018-09-12 Former user Universi ty of exposure 00:00:00 00:00:00 [facility] Sex Assigned At [address] [address] Natalya kes - 00:00:00 00:[facility]:00 [facility] Smoking Status Start Date Stop Date Source Former smoker 2018-09-12 00:00:00 2018-09-12 [facility]:00:00 [facility] Medications Ordered Filled Start Stop Current Ordering Indication Dosage Frequency Signature Comments Components Source Medication Medication Date Date Medication? Clinician (SIG) Name Name multivit 2020-07 Yes Take by Unive rs with 2-14 mouth. ity of minerals/natalya 11:37: [facility] 22 Medical (MULTIVITAM Branch IN 50 PLUS ORAL) ergocalcife 2020-07 Yes Take by Un eleazar rol, 2-14 mouth. ity of vitamin D2, 11:37: [place] (VITAMIN D 21 Medical ORAL) Branch ascorbic 2020-07 Yes Take by Unive rs acid 2-14 mouth. ity of (VITAMIN C 11:37: [place] ORAL) 21 Medical Branch furosemide 2020-07 Yes 40mg Take 1 Unive rs 40 mg 2-14 tablet by ity of tablet 00:00: mouth. [address] Molina, Branch takes twice a week. XARELTO 15 Yes 1{tbl} Take 1 Uni vers mg tablet 6-05 tablet by ity o f 00:00: mouth 00 daily. Medical Branch furosemide 2020- No 40mg Take 40 mg Univers 40 mg 6-03 12-14 by mouth ity of tablet 00:00: 00:00 every [place] 00 :00 other day. Medical Branch metoprolol Yes 1{tbl} Take 1 Uni vers tartrate 25 5-16 tablet by ity of mg tablet 00:00: mouth 2 [place] 00 (two) Medical times Branch daily. lisinopriL Yes [id number] 30mg Take 1 Un eleazar 30 mg 2-04 tablet by ity of tablet 00:00: mouth [place] 00 daily. Medical Branch mupirocin 2 2019-07 Yes [id number] Apply to Univers % ointment 2-18 area(s) 3 ity of 00:00: (three) [place] 00 times Medical daily. Branch fluticasone Yes [id number] 1{spray Use 1 Univers propionate 7-03 } [place] in ity o f 50 00:00: each [place] mcg/actuati 00 nostril 2 Med ical on nasal (two) Branch spray times daily. neomycin-po 2020- No [id number] Put in 2 Univers lymyxin-hyd 01-21-14 drops ity of rocortisone 00:00: 00:00 daily for [place] 3.5-10,000- 00 :00 ear pain, Med ical 1 can use in Branch mg/mL-unit/ both ears mL-% otic if needed. susp Immunizations Ordered Filled Immunization Date Status Comments [facility] e Immunization Name Name Td 2018-04-26 Completed [facility] 00:00:00 [facility] Vital Signs Vital Name Observation Time Observation Value Comments Source Systolic blood 2021-07-04 16:27:00 130 mm[facility]Hg[facility] Diastolic blood 2021-07-04 16:27:00 70 mm[facility]Hg[facility] 2021-07-04 16:27:00 69 /min [facility] Body temperature 2021-07-04 16:27:00 36.61 Shawna [facility] Respiratory rate 2021-07-04 16:27:00 18 /min [facility] Body height 2021-07-04 16:27:00 175.3 cm [facility] Body weight 2021-07-04 16:27:00 84.369 kg [facility] BMI 2021-07-04 16:27:00 27.47 kg/m2 [facility] Oxygen saturation in 2021-07-04 16:27:00 97 /min University Arterial blood by [facility] Pulse oximetry Branch Procedures This patient has no known procedures. Encounters Start End Encounter Admission Attending Care Care Encounter Source Date/Time Date/Time Type Type Clinicians Facility Department ID 2021-07-04 2021-07-04 [facility] [id number] [facility] 10:20:00 11:58:45 Visit Nilam CULVER [id number] nanette [facility] [id number] Nicki gomes PROFESSIO [phone] [address] 2021-07-04 2021-07-04 Outpatient R RUSSELL [facility] [id number] [facility] 10:20:00 11:58:45 NILAM [facility] 2020-04-29 2020-04-29 [facility] [id number] 00:00:00 00:00:00 Nilam [facility] [id number] [place] [id number] Professio [phone] [address] 2020-04-28 2020-04-28 Refill Wells, [facility] [id number] 00:00:00 00:00:00 Nilam [place] [id number] [place] [id number] Professio [phone] [address] 2020-04-27 2020-04-27 Urgent Provider, [facility] [id number] 09:43:26 10:03:26 Care [facility] [id number] Care [place] [id number] Professio [phone] [place] [address] Office [facility] 2020-01-22 2020-01-22 [facility] [id number] 09:55:31 11:18:59 Visit Nilam [place] [id number] [place] [id number] Professio [phone] [facility] [address] Building Results This patient has no known results.
[2021-09-17 13:29] LABS: Absolute Lymphocytes (CBC) 1.5 K/uL (0.7-4.9); Lymphocytes % 17.5 % (15.3-44.8); MPV 7.2 fL (7.6-11.3); RBC Red Blood Cell Count 4.66 M/uL (3.86-4.86)
[2021-09-17] MEDS ORDERED: ONDANSETRON 4 MG/2 ML VIAL ONE (13:29)
[2021-09-17] MEDS ORDERED: MECLIZINE HCL 12.5 MG TAB ONE (13:29)
[2021-09-17] MEDS ORDERED: NA CHLORIDE 0.9% 250 ML ONE (13:30)
[2021-09-17 13:36] LABS: Protime INR 2.08
--- NOTE | 2021-09-17 13:53 | RAD REPORT ---
EXAM DESCRIPTION: CT - Ct Stroke Brain Wo Cont - 09/17/2021 1:43 pm CLINICAL HISTORY: DIZZINESS COMPARISON: Head Brain Wo Cont dated 05/29/2018 TECHNIQUE: All CT scans are performed using dose optimization technique as appropriate and may inclu de automated exposure control or mA/KV adjustment according to patient size. FINDINGS: No intracranial hemorrhage, hydrocephalus or extra-axial fluid collection.No areas of brai n edema or evidence of midline shift. The paranasal sinuses and mastoids are clear. The calvarium is intact. IMPRESSION: No acute intracranial abnormality.
[2021-09-17 13:57] LABS: Albumin 3.8 g/dL (3.4-5.0); Bilirubin Total 0.5 mg/dL (0.2-1.0); Potassium 4.2 mmol/L (3.5-5.1); Protein, Total 7.8 g/dL (6.4-8.2)
--- NOTE | 2021-09-17 14:30 | RAD REPORT ---
EXAM DESCRIPTION: RAD - Chest Single View - 09/17/2021 1:58 pm CLINICAL HISTORY: dizziness COMPARISON: Chest Single View dated 07/06/2018; Chest Single View dated 05/25/2018; Chest Pa And Lat (2 Views) dated 06/03/2017; Chest Pa And Lat (2 Views) dated 11/10/2016 FINDINGS: Lines: None. Lungs: No evidence of edema or pneumonia. Pleural: No significant pleural effusions or pneumothorax. Cardiac: The heart size is within normal limits. Bones: No acute fractures. Other: IMPRESSION: No acute cardiopulmonary disease.
[2021-09-17] MEDS ORDERED: hydroCHLOROthiazide 25 MG TAB ONE (14:42)
[2021-09-17] MEDS ORDERED: lisinopriL 10 MG TAB ONE (14:42)
--- NOTE | 2021-09-17 15:17 | ER ---
Nurse's Notes [facility] Name: Suzanna Loving Age: 86 yrs Sex: Female : 1935 Arrival Date: 09/17/2021 Time: 12:31 Bed 2 Private MD: Diagnosis: Other peripheral vertigo;Dizziness and giddiness;Nausea with vomiting, unspecified Presentation: 09/17 12:49 Chief complaint: Patient states: N/V, dizzy, and high BP for 1.5 hours [employer]ING [employer]. No fever. ll1 [place] off/on, none now. Coronavirus screen: Vaccine status: Patient reports being unvaccinated. Client denies travel out of the [place] in the last 14 days. fatigue, nausea, vomiting. Client presents with at least one sign or symptom that may indicate coronavirus-19. Standard/surgical mask placed on the client. Ebola Screen: Patient denies travel to an Ebola-affected area in the 21 days before illness onset. Initial Sepsis Screen: Does the patient meet any 2 criteria? HR > 90 bpm. No. Patient's initial sepsis screen is negative. Does the patient have a suspected source of infection? No. Patient's initial sepsis screen is negative. Risk Assessment: Do you want to hurt yourself or someone else? Patient reports no desire to harm self or others. Onset of symptoms was September 17, 2021. 12:49 Method Of Arrival: Wheelchair ll1 12:49 Acuity: ARTHUR 2 ll1 Triage Assessment: 12:50 General: Appears uncomfortable, Behavior is calm, cooperative, appropriate for age. ll1 Pain: Denies pain. Neuro: Reports dizziness, headache weakness. Cardiovascular: No deficits noted. Respiratory: No deficits noted. GI: Reports nausea, vomiting. Historical: - Allergies: 12:48 Pyridium; ll1 - Home Meds: 14:27 hydrochlorothiazide 25 mg Oral tab [Active]; lisinopril 5 mg Oral tab 1 tab in the ww morning, 1 tab at bedtime. [Active]; Xarelto 20 mg oral tab 1 tab once daily [Active]; - PMHx: 12:48 BRADYCARDIA; COPD; Hypertension; A fib; ll1 - PSHx: 12:48 None; ll1 - Immunization history:: Client reports having NOT received the Covid vaccine. - Social history:: Smoking status: Patient denies any tobacco usage or history of. Screenin:59 Abuse screen: Denies threats or abuse. Nutritional screening: No deficits noted. ss7 Tuberculosis screening: No symptoms or risk factors identified. Fall Risk IV access (20 points). Assessment: 12:59 General: Appears in no apparent distress. Behavior is calm, cooperative, appropriate ss7 for age, Care resumed at this time. . Pain: Denies pain. Neuro: Level of Consciousness is awake, alert, obeys commands, Oriented to person, place, time, situation, Ccu Nurse are equal bilaterally Moves all extremities. Gait is steady, Speech is normal, Facial symmetry appears normal. Neuro: Reports dizziness. Cardiovascular: Heart tones S1 S2. Respiratory: Breath sounds are clear bilaterally. GI: Abdomen is non-distended, Pt is actively vomiting Bowel sounds present X 4 quads. Abd is soft and non tender. : No deficits noted. EENT: No deficits noted. Derm: No deficits noted. Musculoskeletal: No deficits noted. 13:45 Reassessment: Patient appears in no apparent distress at this time. No changes from previously documented assessment. Patient and/or family updated on plan of care and expected duration. Pain level reassessed. Patient is alert, oriented x 3, equal unlabored respirations, skin warm/dry/pink. 14:59 Reassessment: Patient appears in no apparent distress at this time. No changes from previously documented assessment. Patient and/or family updated on plan of care and expected duration. Pain level reassessed. Patient is alert, oriented x 3, equal unlabored respirations, skin warm/dry/pink. 16:19 Reassessment: Patient appears in no apparent distress at this time. Patient and/or ph family updated on plan of care and expected duration. Pain level reassessed. Patient is alert, oriented x 3, equal unlabored respirations, skin warm/dry/pink. Patient states symptoms have improved. Vital Signs: 12:49 BP 169 / 107; Pulse 95; Resp 17; Temp 97.0; Pulse Ox 100% ; Weight 81.65 kg; Height 5 ll1 ft. 9 in. (175.26 cm); Pain 0/10; 14:29 BP 191 / 107; Pulse 82; Resp 18; Pulse Ox 100% on R/A; ww 15:12 BP 177 / 94; Pulse 78; Resp 18; Pulse Ox 100% on R/A; ph 16:15 BP 175 / 95; Pulse 72; Resp 18; Temp 97.2; Pulse Ox 98% on R/A; ph 12:49 Body Mass Index 26.58 (81.65 kg, 175.26 cm) ll1 ED Course: 12:31 Patient arrived in ED. mr 12:40 Arm band placed on Patient placed in an exam room, on a stretcher. ll1 12:48 Silverio Mccray MD is Attending Physician. jr11 12:50 Triage completed. ll1 12:59 Patient has correct armband on for positive identification. Placed in gown. Bed in low ss7 position. Call light in reach. Side rails up X2. Adult w/ patient. 12:59 No provider procedures requiring assistance completed. Inserted saline lock: 20 gauge ss7 in left antecubital area, using aseptic technique. 13:44 CT Stroke Brain w/o Contrast In Process Unspecified. EDMS 13:58 Stroke CXR 1 View In Process Unspecified. EDMS 14:26 Tita Bird, RN is Primary Nurse. ww 16:20 IV discontinued, intact, bleeding controlled, No redness/swelling at site. Pressure ph dressing applied. Administered Medications: 13:31 Drug: NS 0.9% 250 ml Route: IV; Rate: bolus; Site: left antecubital; ww 14:15 Follow up: Response: No adverse reaction; IV Status: Completed infusion; IV Intake: ph 250ml 13:37 Drug: Zofran (Ondansetron) 4 mg Route: IVP; Site: left antecubital; ww 16:20 Follow up: Response: No adverse reaction ph 13:37 Drug: Meclizine 25 mg Route: PO; ww 16:20 Follow up: Response: No adverse reaction; Marked relief of symptoms ph 14:43 Drug: Lisinopril 10 mg Route: PO; ph 16:21 Follow up: Response: No adverse reaction; Blood pressure is lowered ph 14:43 Drug: Hydrochlorothiazide 25 mg Route: PO; ph 16:21 Follow up: Response: No adverse reaction ph Intake: 14:15 IV: 250ml; Total: 250ml. ph Outcome: 15:16 Discharge ordered by . jr11 16:20 Discharged to home via wheelchair, with family. ph 16:20 Condition: good 16:20 Discharge instructions given to patient, family, Instructed on discharge instructions, follow up and referral plans. medication usage, Demonstrated understanding of instructions, follow-up care, medications, Prescriptions given X 2. 16:21 Patient left the ED. ph Signatures: Dispatcher [employer] [facility] Nazanin Gibson Cristina RN Shanthi Ching ph, RN RN ll1 Tita Bird RN RN ww Rosillo, Jose, MD MD jr11 Dalia Vásquez RN RN ss7
--- NOTE | 2021-09-17 15:17 | EDPHYS ---
Physician Documentation [facility] Name: Suzanna Loving Age: 86 yrs Sex: Female : 1935 Arrival Date: 09/17/2021 Time: 12:31 Bed 2 Private MD: ED Physician Silverio Mccray HPI: 09/17 13:19 This 86 yrs old Female presents to ER via Wheelchair with complaints of High Blood jr11 Pressure, Dizziness, Headache. 13:20 The patient has elevated blood pressure and discovered this at home, with a home jr11 device. Onset: The symptoms/episode began/occurred just prior to arrival. Modifying factors: The symptoms are aggravated by nausea/vomiting, The symptoms are alleviated by nothing. Associated signs and symptoms: Pertinent positives: dizziness, lightheadedness, Pertinent negatives: chest pain, dyspnea. Severity of symptoms: At its worst the blood pressure was moderate, 180s. 86-year-old female that approximately 4 hours ago ate tacos, then started feeling severe nausea, vomited multiple times and then felt dizzy. Dizziness is described as a lightheadedness, denies any ataxia or focal neurologic deficit.. Historical: - Allergies: 12:48 Pyridium; ll1 - Home Meds: 14:27 hydrochlorothiazide 25 mg Oral tab [Active]; lisinopril 5 mg Oral tab 1 tab in the ww morning, 1 tab at bedtime. [Active]; Xarelto 20 mg oral tab 1 tab once daily [Active]; - PMHx: 12:48 BRADYCARDIA; COPD; Hypertension; A fib; ll1 - PSHx: 12:48 None; ll1 - Immunization history:: Client reports having NOT received the Covid vaccine. - Social history:: Smoking status: Patient denies any tobacco usage or history of. ROS: 13:20 Constitutional: Negative for fever, chills Eyes: Negative for injury, pain, redness, jr11 and discharge, Neck: Negative for injury, pain, and swelling, Cardiovascular: Negative for chest pain, palpitations, and edema, Respiratory: Negative for shortness of breath, cough Back: Negative for injury and pain, MS/Extremity: Negative for injury and deformity, Skin: Negative for injury, rash, and discoloration, Psych: Negative for depression, anxiety, suicide ideation, homicidal ideation, and hallucinations, Allergy/Immunology: Negative for hives, rash, and allergies. Exam: 13:20 Constitutional: This is a well developed, well nourished patient who is awake, alert, jr11 and in no acute distress. Head/Face: Normocephalic, atraumatic. Eyes: Extra-ocular motions intact. Lids and lashes normal. Conjunctiva and sclera are non-icteric and not injected. Cornea within normal limits. Periorbital areas with no swelling, redness, or edema. ENT: Nares patent. No nasal discharge, no septal abnormalities noted. Oropharynx with no redness, swelling, or masses, exudates, or evidence of obstruction, uvula midline. Mucous membranes moist. Neck: Trachea midline, no thyromegaly or masses palpated, and no cervical lymphadenopathy. Supple, full range of motion without nuchal rigidity, or vertebral point tenderness. No Meningismus. Chest/axilla: Normal chest wall appearance and motion. Nontender with no deformity. No lesions are appreciated. Cardiovascular: Regular rate and rhythm with a normal S1 and S2. No gallops, murmurs, or rubs. Normal PMI, no JVD. No pulse deficits. Respiratory: Lungs have equal breath sounds bilaterally, clear to auscultation and percussion. No rales, rhonchi or wheezes noted. No increased work of breathing, no retractions or nasal flaring. Abdomen/GI: Soft, non-tender, with normal bowel sounds. No distension or tympany. No guarding or rebound. No evidence of tenderness throughout. MS/ Extremity: Pulses equal, no cyanosis. Neurovascular intact. Full, normal range of motion. 13:20 Neuro: NIHSS = 0, no gross motor or sensory deficits . Vital Signs: 12:49 BP 169 / 107; Pulse 95; Resp 17; Temp 97.0; Pulse Ox 100% ; Weight 81.65 kg; Height 5 ll1 ft. 9 in. (175.26 cm); Pain 0/10; 14:29 BP 191 / 107; Pulse 82; Resp 18; Pulse Ox 100% on R/A; ww 15:12 BP 177 / 94; Pulse 78; Resp 18; Pulse Ox 100% on R/A; ph 16:15 BP 175 / 95; Pulse 72; Resp 18; Temp 97.2; Pulse Ox 98% on R/A; ph 12:49 Body Mass Index 26.58 (81.65 kg, 175.26 cm) ll1 MDM: 13:15 Patient medically screened. [facility] 13:20 Differential diagnosis: hypertensive crisis, intracerebral hemorrhage. Data reviewed: [facility] vital signs, nurses notes, lab test result(s), EKG, radiologic studies. ED course: Patient is an 86-year-old female with history of COPD hypertension atrial fibrillation here with acute onset nausea vomiting about 4 hours ago. Patient's not a TPA candidate given NIH stroke scale is equal to 0 and also no ataxia and appears to be peripheral vertigo versus food poisoning. Patient also outside the TPA window. Will treat symptomatically, CT to lab work and reassess. 14:55 ED course: EKG interpreted by me shows atrial fibrillation rate controlled at 88, QRS jr11 is narrow, normal QTC, no acute ST changes.. 15:12 ED course: Pt feeling better, no more vomiting . 09/17 13:18 Order name: CBC with Diff; Complete Time: 14:00 09/17 13:18 Order name: Protime (+inr); Complete Time: 14:00 09/17 13:18 Order name: Ptt, Activated; Complete Time: 14:00 09/17 13:18 Order name: CT Stroke Brain w/o Contrast; Complete Time: 14:00 09/17 13:18 Order name: Stroke CXR 1 View; Complete Time: 14:56 09/17 13:18 Order name: CMP; Complete Time: 14:00 09/17 13:18 Order name: EKG; Complete Time: 13:19 09/17 13:18 Order name: Cardiac monitoring; Complete Time: 13:38 09/17 13:18 Order name: EKG - Nurse/Tech; Complete Time: 14:43 09/17 13:18 Order name: IV Saline Lock; Complete Time: 13:21 09/17 13:18 Order name: Labs collected and sent; Complete Time: 13:21 09/17 13:18 Order name: NPO; Complete Time: 13:21 09/17 13:18 Order name: O2 Per Protocol; Complete Time: 13:21 09/17 13:18 Order name: O2 Sat Monitoring; Complete Time: 13:21 09/17 13:18 Order name: Stroke Swallow Screen; Complete Time: 13:57 jr11 Administered Medications: 13:31 Drug: NS 0.9% 250 ml Route: IV; Rate: bolus; Site: left antecubital; ww 14:15 Follow up: Response: No adverse reaction; IV Status: Completed infusion; IV Intake: ph 250ml 13:37 Drug: Zofran (Ondansetron) 4 mg Route: IVP; Site: left antecubital; ww 16:20 Follow up: Response: No adverse reaction ph 13:37 Drug: Meclizine 25 mg Route: PO; ww 16:20 Follow up: Response: No adverse reaction; Marked relief of symptoms ph 14:43 Drug: Lisinopril 10 mg Route: PO; ph 16:21 Follow up: Response: No adverse reaction; Blood pressure is lowered ph 14:43 Drug: Hydrochlorothiazide 25 mg Route: PO; ph 16:21 Follow up: Response: No adverse reaction ph Disposition Summary: 09/17/21 15:16 Discharge Ordered Location: Home [facility] Condition: Stable jr Diagnosis - Other peripheral vertigo jr11 - Dizziness and giddiness jr11 - Nausea with vomiting, unspecified jr11 Discharge Instructions: - Discharge Summary Sheet jr11 - Benign Positional Vertigo jr11 - Dizziness jr11 - Nausea, Adult jr11 Forms: - Medication Reconciliation Form jr11 - Thank You Letter jr11 - Antibiotic Education jr11 - Prescription Opioid Use jr11 Prescriptions: - Meclizine 25 mg Oral Tablet - take 1 tablet by ORAL route every 8 hours As needed; 30 tablet; Refills: 0, jr11 Product Selection Permitted - Zofran 4 mg Oral Tablet - take 1 tablet by ORAL route every 12 hours As needed; 20 tablet; Refills: 0, jr11 Product Selection Permitted Signatures: Dispatcher [employer] Cristina Fernandez RN RN ph Lewis, Lynsay, RN RN [facility] Tita Bird RN RN ww Rosillo, Jose, MD MD jr11
[2021-09-17 16:32] VITALS: BP 175/95; TEMP 97.2; O2SAT 98
== END 2021-09-17 16:21 | disposition home or self-care (01) ==
LOC: ER 12:28
DX: H81.399 Other peripheral vertigo, unspecified ear (principal); R11.2 Nausea with vomiting, unspecified; I10 Essential (primary) hypertension; J44.9 Chronic obstructive pulmonary disease, unspecified; I48.91 Unspecified atrial fibrillation; Z79.01 Long term (current) use of anticoagulants; Z88.8 Allergy status to other drugs, medicaments and biological substances
CPT/HCPCS: 96365; 93005; 85025; 36415; 85610; 85730; 80053; 70450; 71045; 96375; 99284; J7050; J2405; J8597